=== PATIENT | female | born 1960 | race Two or more races ===

== ENCOUNTER → 2017-08-07 | Outpatient (CLI) | payer OTHER, MEDICAID ==
[~2017-08-07] MED LIST: ADAL40PE SQ; ALPR1TAB2 PO; ALPR1TAB6 PO; ASPI-655 PO; CYCL10TA2 PO; DEXL30CA2 PO; DULO60CA7 PO; FLUT16SP HHN; GABA100C7 PO; HYDR-3101 PO; HYDR-3105 PO; HYDR200T5 PO; IBUP-1131 PO; LEVO150T6 PO; LOVA10TA PO; MECL25TA3 PO; OMEP40CA6 PO; PRED5TAB17 PO; PREG100C PO; PROM25TA10 PO
--- NOTE | 2017-08-07 17:37 | DIREP ---
PROCEDURE:MAMMO BILATERAL SCREENING TECHNIQUE:MLO and CC digital images of each breast are provided. Computer Assisted Detection (CAD) was utilized. COMPARISON:[facility], , DIGITAL MAMMO SCREENING, 11/06/2013, 11:48 AM. INDICATIONS:SCREENING BREAST COMPOSITION:The breasts are almost entirely fatty. FINDINGS:There are no visible suspicious masses, clustered calcifications or architectural changes to suggest malignancy. CONCLUSION:There is no mammographic evidence of malignancy. There is no significant change as compared with the previous examination(s). RECOMMENDATIONS:Routine age-appropriate screening. OVERALL FINAL ASSESSMENT:BI-RADS 1: Negative Note:This facility participates in a mammography screening patient reminder system. Dictated by: Everardo Lepe M.D. on 08/07/2017 at 05:36 PM
== END | disposition home or self-care (01) ==
LOC: RAD 09:23
PROVIDERS: ATTEND Nurse Practitioner Family
DX: Z12.31 Encounter for screening mammogram for malignant neoplasm of breast (principal)
CPT/HCPCS: G0202; 77067

== ENCOUNTER 2018-04-05 14:39 | Emergency (ER) | payer OTHER, MEDICAID ==
[~2018-04-05] VITALS: Ht 157.5 cm; Wt 72.6 kg
[2018-04-05 14:48] VITALS: BP 145/81
--- NOTE | 2018-04-05 15:08 | NUR ---
CT PT OUT OF ROOM
[2018-04-05] MEDS ORDERED: MORPHINE SULFATE ONE (15:25)
--- NOTE | 2018-04-05 15:27 | NUR ---
CT PT BACK IN ROOM
--- NOTE | 2018-04-05 15:28 | DIREP ---
PROCEDURE:CHEST 1 VIEW COMPARISON:[facility], CR, XRAY CHEST SINGLE VW, 08/03/2016, 02:57 PM. INDICATIONS:possible cva FINDINGS: VASCULATURE:Unremarkable pulmonary vasculature. CARDIAC:No cardiac silhouette abnormality or cardiomegaly. ANGELICA/MEDIASTINUM:No visible mass or adenopathy. BONES:No acute fracture. OTHER:No additional findings. CONCLUSION: 1. No acute cardiopulmonary changes. Dictated by: Everardo Lepe M.D. on 04/05/2018 at 03:26 PM
[2018-04-05] MEDS ORDERED: MORPHINE SULFATE IV PRN (15:30)
--- NOTE | 2018-04-05 15:31 | DIREP ---
PROCEDURE:CT HEAD OR BRAIN W/O CONTRAST COMPARISON:None. INDICATIONS:sudden onset 20 min ago R arm/leg shaking R sided HASSAN;hx prior cva R side TECHNIQUE:CT images were created without intravenous contrast. FINDINGS: VENTRICLES: Negative. CEREBRUM: Negative. CEREBELLUM: Negative. BRAINSTEM: Negative. BASAL CISTERNS: Negative. SKULL: Negative. SINUSES: Negative. OTHER: None. CONCLUSION: 1. There is no CT evidence of intracranial mass, hemorrhage, or acute infarct. Dictated by: Everardo Lepe M.D. on 04/05/2018 at 03:26 PM
[2018-04-05 15:36] LABS: BASOPHIL % 0.6 % (0.0-0.2); EOSINOPHIL # 0.2 10^3/uL (0.0-0.2); EOSINOPHIL % 3.5 % (0.0-5.0); HEMOGLOBIN 10.4 g/dL (12.0-15.0); LYMPHOCYTES # 1.8 10^3/uL (1.0-4.8); MEAN CELL HGB 21.4 pg (26-34); MEAN CELL HGB CONCENTRATION 29.5 g/dL (33-37); MEAN CORP VOLUME 72.3 fL (78-100); MEAN PLATELET VOLUME 9.6 fL (7.8-11.0); MONOCYTES # 0.9 10^3/uL (0.3-0.8); MONOCYTES % 13.7 % (5.0-12.0); NEUTROPHIL # 3.8 10^3/uL (1.8-7.7); NEUTROPHILS % 55.9 % (41.0-85.0); PLATELET COUNT 338 10^3/uL (150-400); RED CELL DISTRIBUTION WIDTH 21.4 % (11.5-14.5); WHITE BLOOD CELL 6.8 10^3/uL (4.5-11.0)
[2018-04-05 16:06] LABS: ALANINE AMINOTRANSFERASE(ML) 88 U/L (12-78); ALKALINE PHOSPHATASE 557 U/L (50-136); ASPARTATE AMINO TRANSFERASE 101 U/L (0-35); CALCIUM 8.8 mg/dL (8.4-10.5); CARBON DIOXIDE 25.3 mmol/L (20.0-32); GLUCOSE 81 mg/dL (70-110)
--- NOTE | 2018-04-05 16:46 | PCM.EKG ---
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
--- NOTE | 2018-04-05 16:46 | ER.PDOC ---
General Chief Complaint: General Complaint Stated Complaint: HEADACHE Time seen by MD: 15:30 Source: patient Exam Limitations: no limitations History of Present Illness Initial Comments "I developed a headache on right side of my head about 20 minutes ago that was pretty severe. I developed shaking in my right arm and leg, which were the ones affected by my stroke I had in my 30s. I felt tingling in my lips and hands and feet. Everything has improved since it started but I was concerned and came to the ER" Timing/Duration: 1/2 hour Severity/Quality: moderate, achy Prior Headaches/Recent Trauma: no recent headache/trauma Associated Symptoms: tingling Prior symptoms/Treatment: Similar symptoms previous Allergies: Coded Allergies: No Known Allergies (Unverified , 12/23/15) Home Meds Reported Medications Fluticasone Propionate (FLUTICASONE PROPIONATE) 16 Gm [place].susp, 1 SPR HHN PRN PRN for resp, #16 08/03/16 Lovastatin (LOVASTATIN) 10 Mg Tablet, 1 TAB PO DAILY, #30 08/03/16 Pregabalin (LYRICA) 100 Mg Capsule, 1 CAP PO DAILY, #60 08/03/16 Dexlansoprazole (DEXILANT) 30 Mg Cap.dr.mp, 1 TAB PO DAILY, #30 08/03/16 Adalimumab (HUMIRA) 40 Mg/0.8 Ml Pen.ij.kit, 40 MG SQ every week 10/13/15 Hydrocodone Bit/Acetaminophen (NORCO 10-325) 1 Each Tablet, 1 TAB PO QID, #120 TAB 10/13/15 Gabapentin (GABAPENTIN) 100 Mg Capsule, 200 MG PO TID, CAPSULE 07/02/15 Omeprazole (OMEPRAZOLE) 40 Mg Capsule.dr, 40 MG PO DAILY 07/02/15 Hydroxychloroquine Sulfate (HYDROXYCHLOROQUINE SULFATE) 200 Mg Tablet, 200 MG PO BID, TABLET 07/02/15 Prednisone (PREDNISONE) 5 Mg Tab.ds.pk, 10 MG PO DAILY 07/02/15 Meclizine Hcl (MECLIZINE HCL) 25 Mg Tablet, 25 MG PO TID, TABLET 07/02/15 Alprazolam (ALPRAZOLAM) 1 Mg Tablet, 1 MG PO TID, TABLET 07/02/15 Levothyroxine Sodium (LEVOTHYROXINE SODIUM) 150 Mcg Tablet, 150 MCG PO DAILY, TABLET 07/02/15 Cyclobenzaprine Hcl (FLEXERIL) 10 Mg Tablet, 10 MG PO TID PRN for PAIN, TABLET 07/02/15 Past Medical History Medical History: CVA/TIA/stroke, coronary artery disease, heart attack, hypertension, thyroid disease Surgical History: , hysterectomy Family History Significant Family History: no pertinent family hx Social History Smoking: non-smoker Alcohol Use: none Drug Use: none Review of Systems Constitutional: denies no symptoms reported, denies see HPI, denies chills, denies diaphoresis, denies fever, denies malaise, denies weakness, denies other Eyes: denies no symptoms reported, denies see HPI, denies blindness, denies blurred vision, denies drainage, denies decreased acuity, denies foreign body sensation, denies inflammation, denies pain, denies photophobia, denies previous injury, denies shadows, denies tunnel vision, denies vision change, denies contact lenses, denies glasses, denies other Ears, Nose, Mouth, Throat: denies no symptoms reported, denies see HPI, denies ear pain, denies ear discharge, denies nose pain, denies nose discharge, denies epistaxis, denies mouth pain, denies mouth swelling, denies loose teeth, denies throat pain, denies throat swelling Respiratory: denies no symptoms reported, denies see HPI, denies cough, denies orthopnea, denies shortness of breath, denies stridor, denies wheezing, denies other Cardiovascular: denies no symptoms reported, denies see HPI, denies chest pain , denies edema, denies palpitations, denies syncope, denies other Gastrointestinal: denies no symptoms reported, denies see HPI, denies abdominal pain, denies constipation, denies diarrhea, denies nausea, denies vomiting, denies other Genitourinary: denies no symptoms reported, denies see HPI, denies discharge, denies dysuria, denies frequency, denies hematuria, denies pain, denies other Musculoskeletal: denies no symptoms reported, denies see HPI, denies back pain , denies gout, denies joint pain, denies joint swelling, denies muscle pain, denies muscle stiffness, denies neck pain, denies other Skin: denies no symptoms reported, denies see HPI, denies change in color, denies change in hair/nails, denies dryness, denies lesions, denies lumps, denies rash, denies other Psychiatric/Neurological: anxiety All Other Systems: Reviewed and Negative Physical Exam General Appearance: No Apparent Distress, WD/WN, Anxious Head/Eyes: eyes nml inspection, no facial swelling, no nystagmus, PERRL ENT: nml ENT inspection, pharynx nml Neck: nml inspection, Supple Cardiovascular: Normal Peripheral Pulses, Regular Rate, Rhythm, No Edema, No Gallop, No JVD, No Murmur Respiratory: chest non-tender, lungs clear, normal breath sounds, no respiratory distress, no accessory muscle use Gastrointestinal: Normal Bowel Sounds, No Organomegaly, No Pulsatile Mass, Non Tender, Soft Back: Normal Inspection, No CVA Tenderness, No Vertebral Tenderness Extremities: Normal Range of Motion, Non-Tender, Normal Inspection, No Pedal Edema, No Calf Tenderness, Normal Capillary Refill Psychiatric: Alert, Oriented x 3 Cranial Nerves: Normal Hearing, Normal Speech, PERRL Coordination/Gait: Normal Finger to Nose, Normal Gait Motor/Sensory: No Motor Deficit, No Sensory Deficit, No Pronator Drift, Other ( Normal Full strength and ROM x 4 extremities) Skin: Warm/Dry, Normal Color Lymphatic: No Adenopathy Results/Orders Results/Orders Laboratory Tests Test 04/05/18 15:30 04/05/18 16:55 White Blood Count 6.8 10^3/uL (4.5-11.0) Red Blood Count 4.87 10^6/uL (4.00-5.20) Hemoglobin 10.4 g/dL (12.0-15.0) Hematocrit 35.2 % (36.0-46.0) Mean Corpuscular Volume 72.3 fL (78-100) Mean Corpuscular Hemoglobin 21.4 pg (26-34) Mean Corpuscular Hemoglobin Concent 29.5 g/dL (33-37) Red Cell Distribution Width 21.4 % (11.5-14.5) Platelet Count 338 10^3/uL (150-400) Mean Platelet Volume 9.6 fL (7.8-11.0) Neutrophils (%) (Auto) 55.9 % (41.0-85.0) Lymphocytes (%) (Auto) 26.0 % (24.0-44.0) Monocytes (%) (Auto) 13.7 % (5.0-12.0) Neutrophils # (Auto) 3.8 10^3/uL (1.8-7.7) Lymphocytes # (Auto) 1.8 10^3/uL (1.0-4.8) Monocytes # (Auto) 0.9 10^3/uL (0.3-0.8) Absolute Immature Granulocyte (auto 0.02 10^3 u/L (0-2) Eosinophils % 3.5 % (0.0-5.0) Basophils % 0.6 % (0.0-0.2) Basophils # 0.0 10^3/uL (0.0-0.1) Hypochromasia 2+ (NEGATIVE) Poikilocytosis 2+ (NEGATIVE) Anisocytosis 3+ (NEGATIVE) Microcytosis 2+ (NEGATIVE) Macrocytosis 1+ (NEGATIVE) Stomatocytes 1+ (NEGATIVE) Elliptocytes 1+ (NEGATIVE) Eosinophil Count 0.2 10^3/uL (0.0-0.2) Sodium Level 140 mmol/L (132-145) Potassium Level 3.4 mmol/L (3.6-5.2) Chloride Level 105.0 mmol/L (96-109) Carbon Dioxide Level 25.3 mmol/L (20.0-32) Anion Gap 13.1 Blood Urea Nitrogen 11 mg/dL (7-18) Creatinine 0.88 mg/dL (0.59-1.40) Estimated GFR () 80.7 (>/=60) BUN/Creatinine Ratio 12.0 Glucose Level 81 mg/dL (70-110) Calcium Level 8.8 mg/dL (8.4-10.5) Total Bilirubin 1.0 mg/dL (0.2-1.0) Aspartate Amino Transf (AST/SGOT) 101 U/L (0-35) Alanine Aminotransferase (ALT/SGPT) 88 U/L (12-78) Alkaline Phosphatase 557 U/L (50-136) Troponin I < 0.02 ng/mL (0.00-0.05) Total Protein 7.3 g/dL (6.4-8.2) Albumin 3.0 g/dL (3.4-5.0) Globulin 4.3 Percent Immature Gran (Cell Imm) 0.30 % (0.00-0.50) Urine Collection Type CCMS Urine Color YELLOW (YELLOW) Urine Appearance CLEAR (CLEAR) Urine Bilirubin NEGATIVE MG/DL (NEGATIVE) Urine Ketones NEGATIVE (NEGATIVE) Urine Specific [place] 1.005 (1.005-1.035) Urine pH 6 (5.0-6.0) Urine Protein NEGATIVE (NEGATIVE) Urine Urobilinogen NORMAL (NEGATIVE) Urine Nitrate NEGATIVE (NEGATIVE) Urine Leukocyte Esterase NEGATIVE (NEGATIVE) Urine Blood NEGATIVE (NEGATIVE) Urine Glucose NORMAL (NEGATIVE) Administered Medications Medications (Trade) Dose Ordered Sig/Freda Route PRN Reason Start Time Stop Time Status Last Admin Dose Admin Morphine Sulfate (Morphine Sulfate) 2 mg OT PRN IV PAIN 04/05/18 15:30 05/05/18 15:29 04/05/18 15:33 EKG/XRAY/CT/US EKG: NSR, WI, QRS, no ST T wave changes Departure Time of Disposition: 18:25 Disposition: 01 HOME, SELF-CARE Impression: Primary Impression: Anxiety Additional Impression: Hyperventilation Condition: Stable Patient Instructions: Anxiety and Panic Attacks Referrals: DIANN ARRIETA SHREDDING FLOOR EQUIPMENT OPERATOR (PCP) PRIMARY CARE PROVIDER Comments If this happens again immediately take one of your xanax. If you don't get better in 30 minutes then come to the ER. Duration or Time Spent with Pa: 40 ELAN KEENAN MD Apr 05, 2018 16:46
[2018-04-05 17:00] LABS: ANISOCYTOSIS 3+ (NEGATIVE); ELLIPTOCYTES 1+ (NEGATIVE); MICROCYTOSIS 2+ (NEGATIVE)
[2018-04-05 17:04] LABS: BILIRUBIN,URINE NEGATIVE (NEGATIVE); UROBILINOGEN,URINE NORMAL (NEGATIVE)
[2018-04-05 17:06] LABS: APPEARANCE,URINE CLEAR (CLEAR); UA COLOR YELLOW (YELLOW)
[2018-04-05 18:47] VITALS: BP 145/81
== END 2018-04-05 18:41 | disposition home or self-care (01) ==
LOC: EDBD 14:39 → ER 14:39
DX: F41.9 Anxiety disorder, unspecified (principal); R06.4 Hyperventilation; E07.9 Disorder of thyroid, unspecified; I10 Essential (primary) hypertension; I25.10 Atherosclerotic heart disease of native coronary artery without angina pectoris; I25.2 Old myocardial infarction; Z86.73 Personal history of transient ischemic attack (TIA), and cerebral infarction without residual deficits; Z90.710 Acquired absence of both cervix and uterus; Z79.899 Other long term (current) drug therapy
CPT/HCPCS: 36415; 70450; 71045; 80053; 81002; 84484; 85025; 93005; 96374; 99285; J2270

== ENCOUNTER → 2018-05-02 | Outpatient (CLI) | payer OTHER, MEDICAID ==
[2018-05-02 15:17] LABS: HEMOGLOBIN 12.5 g/dL (12.0-15.0); MEAN CELL HGB 21.9 pg (26-34); MEAN CELL HGB CONCENTRATION 30.6 g/dL (33-37); MEAN CORP VOLUME 71.8 fL (78-100); RED CELL DISTRIBUTION WIDTH 21.4 % (11.5-14.5); WHITE BLOOD CELL 7.9 10^3/uL (4.5-11.0)
[2018-05-03 06:20] LABS: ALKALINE PHOSPHATASE 417 IU/L (39-117)
[2018-05-03 09:25] LABS: HEP A AB, IgM Negative (Negative)
[2018-05-06 17:15] LABS: BONE FRACTION: 41 % (14-68)
== END | disposition home or self-care (01) ==
LOC: LAB 14:52
PROVIDERS: ATTEND Nurse Practitioner Family
DX: D64.9 Anemia, unspecified (principal); R74.8 Abnormal levels of other serum enzymes; E11.9 Type 2 diabetes mellitus without complications; I10 Essential (primary) hypertension; E78.5 Hyperlipidemia, unspecified; E03.9 Hypothyroidism, unspecified; J44.9 Chronic obstructive pulmonary disease, unspecified; Z79.899 Other long term (current) drug therapy
CPT/HCPCS: 36415; 80061; 80074; 82607; 82746; 82977; 83516; 83550; 84080; 85027; 86376

== ENCOUNTER 2018-06-13 01:41 | Day surgery (SDC) | payer OTHER, MEDICAID ==
[2018-06-12 14:54] VITALS: BP 122/81
[2018-06-12 17:43] LABS: BASOPHIL # 0.1 10^3/uL (0.0-0.1); BASOPHIL % 1.5 % (0.0-0.2); EOSINOPHIL # 0.4 10^3/uL (0.0-0.2); EOSINOPHIL % 6.8 % (0.0-5.0); HEMOGLOBIN 12.6 g/dL (12.0-15.0); LYMPHOCYTES % 48.9 % (24.0-44.0); MEAN CELL HGB 25.4 pg (26-34); MEAN CELL HGB CONCENTRATION 31.4 g/dL (33-37); MEAN CORP VOLUME 80.7 fL (78-100); MONOCYTES # 0.7 10^3/uL (0.3-0.8); MONOCYTES % 11.1 % (5.0-12.0); NEUTROPHIL # 1.9 10^3/uL (1.8-7.7); NEUTROPHILS % 31.4 % (41.0-85.0); RED CELL DISTRIBUTION WIDTH 21.5 % (11.5-14.5)
[2018-06-12 17:53] LABS: CALCIUM 9.3 mg/dL (8.4-10.5)
[~2018-06-13] VITALS: Ht 160 cm; Wt 70.8 kg
[2018-06-13] VITALS (15 sets, daily range): BP systolic 105–130; BP diastolic 64–83
[~2018-06-13 01:41] MED LIST changes: +CALC-76 PO; +CHOL500050 PO; +[UNRECOGNIZED DRUG - CODE] SQ
[2018-06-13] MEDS ORDERED: NS 1000ML 1,000 ML ONE (05:41)
[2018-06-13] MEDS ORDERED: VERSED ONE (06:21)
[2018-06-13] MEDS ORDERED: HEPARIN ONE (06:21)
[2018-06-13] MEDS ORDERED: SUBLIMAZE ONE (06:21)
[2018-06-13] MEDS ORDERED: XYLOCAINE ONE (06:22)
[2018-06-13] MEDS ORDERED: NS 1000ML 1,000 ML IV SCH (09:00)
[2018-06-13] MEDS ORDERED: LISI-410 PO (09:25)
[2018-06-13] MEDS ORDERED: FERR325T15 PO (09:27)
[2018-06-13] MEDS ORDERED: DULO60CA7 PO (09:27)
[2018-06-13] MEDS ORDERED: LORA10TA3 PO (09:29)
[2018-06-13] MEDS ORDERED: NITROGLYCERIN 25MG/D5W 250ML 250 ML IV ONE (10:51)
--- NOTE | 2018-06-13 15:08 | CCRH ---
DATE OF SERVICE: 06/13/2018 PROCEDURE: 1. Left heart catheterization. 2. Selective coronary angiography. 3. Left ventricular angiography. CLINICAL INDICATION: The patient had a previous cardiac catheterization 5 years ago at a different institution. She came to the office complaining of episodes of substernal chest pain associated with diaphoresis. I am recommending that we do a repeat catheterization. DESCRIPTION OF PROCEDURE: After informed consent was obtained, the patient was brought to the cardiac catheterization lab in the fasting state and was prepped and draped in the usual sterile fashion. A 6-Australian sheath was placed in the right radial artery using Seldinger technique. A 5-Australian [place] catheter was then used for selective angiography of the left and right coronary arteries. Over a wire, the [place] catheter was exchanged for a 6-Australian angle pigtail catheter. Left ventricular angiography was performed in the COMER projection. Over a wire, the pigtail catheter was removed. The 6-Australian sheath was removed in the cardiac clinical laboratory aide and a TR band placed for hemostasis. FINDINGS: CORONARIES: Left main coronary artery is normal. It gives rise to a circumflex and an anterior descending. The circumflex is the nondominant vessel. The left coronary arteries are free of any occlusive disease. The right coronary artery is a dominant vessel. There is a 30% stenosis at its origin, but no flow limiting disease. The left ventricle is of normal size and normal contractility. The ejection fraction is estimated at 60% and there were no flow-limiting lesions. CONCLUSION: 1. Normal coronary arteries. 2. Mild stenosis at the origin of the right coronary artery with MICAELA grade 3 flow. 3. Normal left ventricle with normal ejection fraction of 60%. MARIANNA CORREIA MD DR: DOTTIE/kaur JOB# [id number]
== END 2018-06-13 15:52 | disposition home or self-care (01) | DRG 303 ==
LOC: CCL 01:41
DX: I25.10 Atherosclerotic heart disease of native coronary artery without angina pectoris (principal); F32.9 Major depressive disorder, single episode, unspecified; E03.9 Hypothyroidism, unspecified; M19.90 Unspecified osteoarthritis, unspecified site; E11.9 Type 2 diabetes mellitus without complications; I20.9 Angina pectoris, unspecified; F41.1 Generalized anxiety disorder; J44.9 Chronic obstructive pulmonary disease, unspecified; E66.3 Overweight; M06.9 Rheumatoid arthritis, unspecified; Z96.659 Presence of unspecified artificial knee joint; Z90.710 Acquired absence of both cervix and uterus; Z98.890 Other specified postprocedural states; Z82.49 Family history of ischemic heart disease and other diseases of the circulatory system; Z83.3 Family history of diabetes mellitus; F15.90 Other stimulant use, unspecified, uncomplicated; Z79.899 Other long term (current) drug therapy; Z68.27 Body mass index [BMI] 27.0-27.9, adult; Z96.652 Presence of left artificial knee joint; Z90.49 Acquired absence of other specified parts of digestive tract; Z87.891 Personal history of nicotine dependence
CPT/HCPCS: 36415; 80048; 85025; 93458; 99152; 99153; C1769; C1887; J1644 ×2; J2250; J3010; J3490 ×2; J7030; Q9967; C1893

== ENCOUNTER → 2018-07-18 | Outpatient (CLI) | payer OTHER, MEDICAID ==
[~2018-07-18] MED LIST changes: +FERR325T15 PO; +LISI-410 PO; +LORA10TA3 PO
--- NOTE | 2018-07-18 15:10 | DIREP ---
PROCEDURE:CT MAXILLOFACIAL W/O CONTRAST COMPARISON:None. INDICATIONS:UNSPECIFIED LESIONS OF ORAL MUCOSA TECHNIQUE:Axial CT images were created without intravenous contrast. Sagittal and coronal reformatted images are provided. FINDINGS: ORBITS:The globe is intact. No extraocular muscle entrapment is identified. No orbital wall fracture is identified. FACIAL BONES:No fracture. NASAL BONES :No fracture MANDIBLE:No fracture. Dental caries right mandibular molars and right maxillary 2nd premolar. SINUSES:No air fluid level is seen. No mucosal thickening. Surrounding bone structures are intact. SOFT TISSUES:No significant hematoma, or soft tissue swelling. CONCLUSION: 1. Dental caries. 2. No other abnormalities. Dictated by: Aquiles Henderson M.D. on 07/18/2018 at 03:03 PM
== END | disposition home or self-care (01) ==
LOC: CT 13:09
PROVIDERS: ATTEND Nurse Practitioner Family
DX: K02.9 Dental caries, unspecified (principal); I10 Essential (primary) hypertension; E11.9 Type 2 diabetes mellitus without complications; J44.9 Chronic obstructive pulmonary disease, unspecified; E78.00 Pure hypercholesterolemia, unspecified; Z87.891 Personal history of nicotine dependence
CPT/HCPCS: 70486

== ENCOUNTER 2018-07-23 01:19 | Day surgery (SDC) | payer OTHER, MEDICAID ==
[2018-07-19 09:39] VITALS: BP 131/84
[2018-07-19 10:32] LABS: BASOPHIL # 0.1 10^3/uL (0.0-0.1); EOSINOPHIL # 0.6 10^3/uL (0.0-0.2); EOSINOPHIL % 10.8 % (0.0-5.0); LYMPHOCYTES # 2.6 10^3/uL (1.0-4.8); MEAN CELL HGB 26.6 pg (26-34); MEAN CELL HGB CONCENTRATION 31.9 g/dL (33-37); MEAN CORP VOLUME 83.2 fL (78-100); MEAN PLATELET VOLUME 11.3 fL (7.8-11.0); MONOCYTES # 0.5 10^3/uL (0.3-0.8); MONOCYTES % 8.7 % (5.0-12.0); NEUTROPHIL # 1.5 10^3/uL (1.8-7.7); NEUTROPHILS % 29.3 % (41.0-85.0); RED CELL DISTRIBUTION WIDTH 19.7 % (11.5-14.5); WHITE BLOOD CELL 5.2 10^3/uL (4.5-11.0)
[2018-07-19 10:45] LABS: CALCIUM 9.3 mg/dL (8.4-10.5); CARBON DIOXIDE 26.5 mmol/L (20.0-32)
[~2018-07-23] VITALS: Ht 160 cm; Wt 75.7 kg
[~2018-07-23 01:19] MED LIST changes: +MOVIPREP POWDER PACKET PO STA
[2018-07-23] MEDS ORDERED: NS 1000ML 1,000 ML ONE ×2 (05:00→07:19)
[2018-07-23] MEDS ORDERED: WATER ONE (06:58)
[2018-07-23 06:59] VITALS: BP 136/99
[2018-07-23] MEDS ORDERED: GLUCAGEN ONE (06:59)
[2018-07-23] MEDS ORDERED: LACTATED RINGERS 1,000 ML IV SCH (07:00)
[2018-07-23] MEDS ORDERED: ZOFRAN ONE (07:00)
[2018-07-23] MEDS ORDERED: SUBLIMAZE ONE (07:00)
[2018-07-23] MEDS ORDERED: LIDOCAINE 2% VIAL ONE (07:01)
[2018-07-23] MEDS ORDERED: DIPRIVAN IV ONE (07:01)
[2018-07-23] MEDS ORDERED: NS 100ML 100 ML IV ONE (07:01)
[2018-07-23 08:10] VITALS: BP 103/72
[2018-07-23 08:25] VITALS: BP 110/72
[2018-07-23 08:40] VITALS: BP 122/75
[2018-07-23 08:53] VITALS: BP 112/64
--- NOTE | 2018-07-23 10:30 | OPH ---
DATE OF SURGERY: 07/23/2018 PREOPERATIVE DIAGNOSIS: Need for screening. POSTOPERATIVE DIAGNOSIS: Check path on colon polyp, ascending colon. SURGEON: Edgar Turner DO. BOBBIN CLEANER HAND: OR staff. ANESTHESIA: Total intravenous anesthesia by Mindy Lopez CRNA. PROCEDURE PERFORMED: Long flexible colonoscopy to the cecum with loop electrocautery polypectomy in the ascending colon. SPECIMENS: Ascending colon polyp to path. ESTIMATED BLOOD LOSS: 3 mL. COUNTS: At the completion of the case, counts were correct per OR staff. DESCRIPTION OF PROCEDURE: The patient is a very pleasant 58-year-old female known from previous evaluation. Prior to procedure, informed consent was obtained. At time of procedure, she was taken to the operative suite and placed in supine position. After timeout, placed in left lateral recumbent position. After adequate sedation, a rectal exam was performed. There were no masses. Next, the colonoscope was advanced transanally with pneumoinsufflation proximally to the level of the cecum. The quality of prep was good. Once the cecum was visualized, camera was slowly withdrawn to facilitate visualization of the ascending colon. In the mid distal ascending colon, a polyp was identified. Initial biopsies were taken with cold forceps. However, due to location, it was snared with the loop and removed with electrocautery. The specimen was then retained with suction and caught and trapped. The base was inspected and noted to have good hemostasis. Camera was withdrawn to the remainder of the ascending colon, hepatic flexure, transverse colon, splenic flexure, descending colon, sigmoid and rectum; there was no further overt mass or polyps, or AVMs. At the level of 5 cm, camera was retroflexed and reinserted. Anal verge was visualized, within normal limits. Camera was reduced. Colon was decompressed. Colonoscope was removed. The patient tolerated this procedure well. There were no acute complications noted. Edgar Turner DO DR: DELGADO/kaur JOB# [id number] CC: Geoff Salvador NP MTDDariel
== END 2018-07-23 08:53 | disposition home or self-care (01) ==
LOC: SDC 01:19
PROVIDERS: ATTEND Surgery
DX: Z12.11 Encounter for screening for malignant neoplasm of colon (principal); D12.2 Benign neoplasm of ascending colon; F41.9 Anxiety disorder, unspecified; E03.9 Hypothyroidism, unspecified; E11.9 Type 2 diabetes mellitus without complications; K21.9 Gastro-esophageal reflux disease without esophagitis; E78.5 Hyperlipidemia, unspecified; M06.9 Rheumatoid arthritis, unspecified; F32.9 Major depressive disorder, single episode, unspecified; I25.10 Atherosclerotic heart disease of native coronary artery without angina pectoris; F15.90 Other stimulant use, unspecified, uncomplicated; Z72.0 Tobacco use; Z98.890 Other specified postprocedural states; Z86.73 Personal history of transient ischemic attack (TIA), and cerebral infarction without residual deficits; Z96.659 Presence of unspecified artificial knee joint; Z90.710 Acquired absence of both cervix and uterus; Z79.899 Other long term (current) drug therapy; Z90.49 Acquired absence of other specified parts of digestive tract; Z98.51 Tubal ligation status; Z80.3 Family history of malignant neoplasm of breast; Z80.8 Family history of malignant neoplasm of other organs or systems; Z82.5 Family history of asthma and other chronic lower respiratory diseases; Z83.3 Family history of diabetes mellitus; Z82.49 Family history of ischemic heart disease and other diseases of the circulatory system
CPT/HCPCS: 36415; 45385; 80053; 85025; 85610; 85730; 88305; J1610; J2001; J2405; J3010; J3490; J7030; J7050

== ENCOUNTER → 2018-12-06 | Outpatient (CLI) | payer OTHER, MEDICAID ==
[~2018-12-06] MED LIST changes: -MOVIPREP POWDER PACKET PO STA
--- NOTE | 2018-12-06 10:29 | DIREP ---
PROCEDURE:CT UPPER EXTREMITY-LT W/CONTRAST COMPARISON:None. INDICATIONS:ACUTE EMBOLISM AND THROMBOSIS OF LT SUBCLAVIAN VEIN TECHNIQUE:After obtaining the patient's consent, multi-planar CT images of the left upper extremity were created with non-ionic intravenous contrast. FINDINGS: BONES:Normal. JOINTS:Normal SOFT TISSUES:Post surgical changes are seen consistent with thyroidectomy. OTHER:The deep veins including the left axillary and left subclavian veins of the left upper extremity are patent. No thrombus or filling defect is demonstrated. CONCLUSION:There are no findings of deep venous thrombosis of the left upper extremity. Further evaluation can be performed with Doppler venous ultrasound. Dictated by: Ron Gonzalez M.D. on 12/06/2018 at 10:19 AM
== END | disposition home or self-care (01) ==
LOC: CT 09:18
PROVIDERS: ATTEND Nurse Practitioner Family
DX: I82.B11 Acute embolism and thrombosis of right subclavian vein (principal); E89.0 Postprocedural hypothyroidism
CPT/HCPCS: 73201; Q9965

== ENCOUNTER → 2019-01-29 | Outpatient (CLI) | payer MEDICARE, OTHER ==
[2019-01-29 14:07] LABS: HEMOGLOBIN 14.6 g/dL (12.0-15.0); MEAN CELL HGB 29.7 pg (26-34); MEAN CELL HGB CONCENTRATION 32.7 g/dL (33-37); MEAN CORP VOLUME 90.7 fL (78-100); RED CELL DISTRIBUTION WIDTH 13.8 % (11.5-14.5); WHITE BLOOD CELL 4.8 10^3/uL (4.5-11.0)
== END | disposition home or self-care (01) ==
LOC: LAB 13:56
PROVIDERS: ATTEND Orthopaedic Surgery
DX: M04.8 Other autoinflammatory syndromes (principal)
CPT/HCPCS: 36415; 85027; 85651; 86140

== ENCOUNTER → 2019-02-03 | Outpatient (CLI) | payer MEDICARE, MEDICAID ==
--- NOTE | 2019-02-03 14:27 | DIREP ---
PROCEDURE:MRI JOINT LOWER EXTREMITY-RT W/O COMPARISON:None. INDICATIONS:LOCKING RIGHT KNEE, MENISCUS TEAR RT KNEE TECHNIQUE:A complete multi-planar MRI was performed. FINDINGS: PATELLOFEMORAL:Normal patellofemoral cartilage. The extensor mechanism is intact. MEDIAL COMPARTMENT MEDIAL MENISCUS:Horizontal tear of the posterior horn body junction of the medial meniscus. HYALINE CARTILAGE:Moderate chondromalacia. No full-thickness defect BONES:Normal. No marrow pathology, fracture, or significant arthropathy. MCL AND MEDIAL CAPSULE:Normal medial collateral ligament and medial capsule. LATERAL COMPARTMENT LATERAL MENISCUS:Horizontal tear of the anterior horn body junction of the lateral meniscus. HYALINE CARTILAGE:Normal. No visible defect. BONES:Normal. No marrow pathology, fracture, or significant arthropathy. LCL/POSTEROLAT. COMPLEX:Normal lateral collateral ligament, fascicles, lateral capsule and ligaments. ACL:Normal appearing ligament. PCL:Normal appearing ligament. MENISCOFEMORAL:Normal meniscofemoral ligaments. EFFUSION:Small joint effusion. OTHER:Negative. CONCLUSION: 1. Horizontal tears of the posterior horn body junction of the medial meniscus and anterior horn body junction of the lateral meniscus 2. Small joint effusion. 3. Mild medial compartment chondromalacia. Dictated by: Basim Urena DO on 02/03/2019 at 02:21 PM
== END | disposition home or self-care (01) ==
LOC: RAD 12:16
PROVIDERS: ATTEND Orthopaedic Surgery
DX: S83.241A Other tear of medial meniscus, current injury, right knee, initial encounter (principal); M94.261 Chondromalacia, right knee; X58.XXXA Exposure to other specified factors, initial encounter; Y93.89 Activity, other specified; Y92.89 Other specified places as the place of occurrence of the external cause; Y99.8 Other external cause status
CPT/HCPCS: 73721

== ENCOUNTER → 2019-04-09 | Outpatient (CLI) | payer MEDICARE, MEDICAID | END | disposition home or self-care (01) | LOC: LAB 15:14 | PROVIDERS: ATTEND Internal Medicine Allergy & Immunology | DX: E80.7 Disorder of bilirubin metabolism, unspecified (principal); I10 Essential (primary) hypertension; Z87.891 Personal history of nicotine dependence | CPT/HCPCS: 36415; 82248 ==

== ENCOUNTER → 2019-06-05 | Outpatient (CLI) | payer MEDICARE, MEDICAID ==
[~2019-06-05] MED LIST changes: +LEXISCAN IV ONE
--- NOTE | 2019-06-19 22:33 | STRESS ---
DATE OF SERVICE: LEXISCAN MYOCARDIAL PERFUSION SCAN A 59-year-old female, 159 pounds, 62 inches tall, history of CAD, post CVA, post MD 30 years ago, history of hypertension, no diabetes and questionable history of dyslipidemia. PRIMARY PHYSICIAN: Dr. Cosby. PHYSICAL ACTIVITIES: Inactive, unable to walk. A 12-lead EKG, regular sinus rhythm with nonspecific ST-T wave changes. Resting heart rate is 56. The patient was given Lexiscan 0.4 mg IV followed by 32.1 mCi of Cardiolite and resting images were obtained prior to that with 9.94 mCi of Cardiolite. Denied any history of any chest pain, nonspecific ST-T wave changes. Normal myocardial perfusion scan with good global perfusion with no provoked ischemic manifestations. TID is 1.1. Normal LV cavity size and contractility, ejection fraction of 70%. No provoked ischemia. Optimized medical therapy advised. Laxmichand MD Teto DR: ERIKA/kaur JOB# [id number] CC: Hi Cosby MD
== END | disposition home or self-care (01) ==
LOC: RAD 08:39
PROVIDERS: ATTEND Internal Medicine Cardiovascular Disease
DX: I25.10 Atherosclerotic heart disease of native coronary artery without angina pectoris (principal)
CPT/HCPCS: 78452; 93017; A9500; J2785

== ENCOUNTER → 2019-06-06 | Outpatient (CLI) | payer MEDICARE, MEDICAID ==
[~2019-06-06] MED LIST changes: -LEXISCAN IV ONE
--- NOTE | 2019-06-06 16:08 | DIREP ---
PROCEDURE:US PELVIC FOLLOWED BY TRANSVAGINAL COMPARISON:[facility], CT, CT-ABDOMEN /PELVIS W/O CONTRAST, 01/03/2012, 09:39 AM. INDICATIONS:PELVIC AND PERINEAL PAIN TECHNIQUE:Pelvic ultrasound using transabdominal technique. Endovaginal images were also obtained for better assessment of the ovaries and adnexa. FINDINGS: UTERUS:Surgically absent. RIGHT OVARY:Normal appearance. 2.9 x 1.4 x 1.2 cm. LEFT OVARY:Normal appearance. 2.3 x 1.2 x 1.2 cm. CUL-DE-SAC:Normal. OTHER:Negative. CONCLUSION: 1. Unremarkable pelvic ultrasound post hysterectomy. Dictated by: ELMO Physician on 06/06/2019 at 02:56 PM ac
== END | disposition home or self-care (01) ==
LOC: RAD 13:37
PROVIDERS: ATTEND Obstetrics & Gynecology
DX: R10.2 Pelvic and perineal pain (principal)
CPT/HCPCS: 76830; 76856

== ENCOUNTER → 2019-08-06 | Outpatient (CLI) | payer MEDICARE, MEDICAID ==
[~2019-08-06] MED LIST changes: +OMEP40CA41 PO; -OMEP40CA6 PO
--- NOTE | 2019-08-06 10:52 | DIREP ---
PROCEDURE:XRAY SHOULDER MIN 2 VWS-RT COMPARISON:[facility], CR, XRAY SHOULDER MIN 2 VWS-RT, 11/27/2017, 04:41 PM. [facility], CT, CT UPPER EXTREMITY-LT W/CONTRAST, 12/06/2018, 09:41 AM. INDICATIONS:M25.511 PAIN IN RIGHT SHOULDER FINDINGS: BONES:Normal. JOINTS:Normal glenohumeral and acromioclavicular joints. No evidence for dislocation. SOFT TISSUES:Normal. OTHER:Normal. CONCLUSION: 1. Normal radiographs of the right shoulder. No significant change is noted since 11/27/2017. Dictated by: Rosales Rodriguez M.D. on 08/06/2019 at 10:49 AM
== END | disposition home or self-care (01) ==
LOC: RAD 09:36
PROVIDERS: ATTEND Nurse Practitioner Family
DX: M25.511 Pain in right shoulder (principal)
CPT/HCPCS: 73030-RT

== ENCOUNTER → 2019-08-14 | Outpatient (CLI) | payer MEDICARE, MEDICAID ==
--- NOTE | 2019-08-15 07:32 | DIREP ---
PROCEDURE:MR SHOULDER WITHOUT CONTRAST [Right] TECHNIQUE:Axial proton density fat sat; sagittal oblique T1 and T2 fat sat; coronal oblique proton density fat sat, T2 and inversion recovery sequences were obtained. COMPARISON:None. INDICATIONS:M25.511 PAIN IN RIGHT SHOULDER, M75.11 INCOMPLETE ROTATOR CUFF TEAR FINDINGS: Rotator cuff: Micro metallic artifact is present in the greater tuberosity and in the subcutaneous tissues over the right shoulder compatible with prior surgery. Partial tears are present along the articular surface and bursal surface of the distal supraspinatus tendon series 501, image 6. There is tendinosis in the remaining portion of the tendon with intermediate signal intensity. There is questionable full-thickness communication sagittal series 701, image 24 and coronal series 501, image 5. Intermediate signal intensity is present in the infraspinatus tendon series 701, image 24 consistent with tendinosis. The teres minor tendon is intact. Partial intra substance tear is present in the sub scapularis tendon series 301, image 14. Fluid is present in the subacromial subdeltoid bursa. This may be secondary to full-thickness communication or represent bursitis. Coracoacromial arch: The acromion is type 2. Enthesophyte formation is present in the inferior acromion at the insertion site of the coracoacromial ligament series 801, image 23. Small amount of fluid is present in the acromioclavicular joint space. The coracoacromial and coracoclavicular ligaments are intact. The coracoid is normal in configuration. Bones and joints space: There is no fracture, marrow edema, destructive intraosseous lesion, Hill-Sachs deformity or evidence of avascular necrosis. The amount of joint fluid is within physiologic range. There are no loose bodies. Labrum and capsule: Slap 2 tear is present in the superior labrum series 501, image 10. There is no para-labral cyst. Biceps tendon: There is either a double long head of the biceps tendon in the intertubercular groove or a longitudinal split. The long head of the biceps tendon is subluxed medially into the torn intra substance tear of the sub scapularis tendon series 301, image 14. Miscellaneous: There is no muscle edema or atrophy. There is no soft tissue mass lesion. The neurovascular structures are normal. CONCLUSION: 1. Micro metallic artifact is present consistent with prior surgery. 2. Partial intrasubstance tear of the sub scapularis tendon allowing medial subluxation long head of the biceps tendon. 3. Partial tears along the articular and bursal surfaces of the supraspinatus tendon. 4. Tendinosis infraspinatus tendon. 5. Slap 2 tear. 6. Either longitudinal split of the long head of the biceps or a double long head of the biceps tendon. Dictated by: Aquiles Henderson M.D. on 08/15/2019 at 07:16 AM
== END | disposition home or self-care (01) ==
LOC: MRI 13:49
PROVIDERS: ATTEND Nurse Practitioner Family
DX: M75.111 Incomplete rotator cuff tear or rupture of right shoulder, not specified as traumatic (principal); M75.91 Shoulder lesion, unspecified, right shoulder
CPT/HCPCS: 73221-RT

== ENCOUNTER → 2019-10-21 | Outpatient (CLI) | payer MEDICARE, MEDICAID ==
[2019-10-21 16:35] LABS: APPEARANCE,URINE CLEAR (CLEAR); BILIRUBIN,URINE NEGATIVE (NEGATIVE); UA COLOR YELLOW (YELLOW); UROBILINOGEN,URINE NORMAL (NEGATIVE)
== END | disposition home or self-care (01) ==
LOC: NPLAB 15:46
PROVIDERS: ATTEND Nurse Practitioner Family
DX: R35.0 Frequency of micturition (principal); R30.0 Dysuria; Z87.442 Personal history of urinary calculi
CPT/HCPCS: 81002; 87086

== ENCOUNTER → 2019-10-22 | Outpatient (CLI) | payer MEDICARE, MEDICAID ==
--- NOTE | 2019-10-22 16:54 | DIREP ---
PROCEDURE:US KIDNEYS-BILAT COMPARISON:None. INDICATIONS:R10.9 ABD PAIN, R35.0 URINARY FREQUENCY, Z87.442 PERSONAL HISTORY URINARY C, HTN TECHNIQUE:Ultrasound examination was performed of the kidneys and bladder. FINDINGS: RIGHT KIDNEY:No hydronephrosis. 9.2 x 4.8 x 5.2 cm. No solid suspicious mass. Renal cortical thickness 1.3 cm with normal echogenicity. LEFT KIDNEY:No hydronephrosis. 10.1 x 4.8 x 4.7 cm. No solid suspicious mass. Left renal cortical thickness 1.2 cm with normal echogenicity. BLADDER:Patient unable to void, 45 cc urine in the bladder. Bilateral ureteral jets are noted. OTHER:Negative. CONCLUSION: 1. Kidneys have a normal sonographic appearance. 2. Patient unable to void with 45 cc urine in the bladder. Dictated by: Kodi Tabares M.D. on 10/22/2019 at 03:50 PM Read in [place]
== END | disposition home or self-care (01) ==
LOC: RAD 14:31
PROVIDERS: ATTEND Nurse Practitioner Family
DX: R35.0 Frequency of micturition (principal); R10.9 Unspecified abdominal pain; I10 Essential (primary) hypertension; Z87.442 Personal history of urinary calculi
CPT/HCPCS: 76770

== ENCOUNTER → 2019-12-19 | Outpatient (CLI) | payer MEDICARE, OTHER ==
[~2019-12-19] MED LIST changes: +MECL-95 PO; -MECL25TA3 PO
[2019-12-21 19:12] LABS: MITOCHONDRIAL (M2) ANTIBODY 169.3 Units (0.0-20.0)
== END | disposition home or self-care (01) ==
LOC: LAB 14:53
PROVIDERS: ATTEND Nurse Practitioner Family
DX: R74.8 Abnormal levels of other serum enzymes (principal); E55.9 Vitamin D deficiency, unspecified
CPT/HCPCS: 36415; 82306; 82977

== ENCOUNTER → 2019-12-26 | Outpatient (CLI) | payer MEDICARE, MEDICAID ==
--- NOTE | 2019-12-26 10:11 | DIREP ---
PROCEDURE:US ABDOMEN LIMITED (SINGLE ORGAN - QUAD) COMPARISON:[facility], US, US KIDNEYS-BILAT, 10/22/2019, 02:58 PM. INDICATIONS:FATTY LIVER DISEASE TECHNIQUE:High resolution sonographic examination was performed of the abdomen. FINDINGS: PANCREAS:Visualized portions of the pancreas appear normal. The pancreatic tail is obscured by bowel gas shadowing. LIVER:Increased hepatic echotexture consistent with hepatic steatosis. There is decreased echotexture adjacent to the gallbladder fossa consistent with focal fatty sparing. No focal hepatic lesion is identified, liver subcostal in location. Posterior segments are difficult to visualize. Hepatopetal flow in the portal vein. GALLBLADDER:Normal appearing gallbladder without evidence for gallbladder wall thickening or pericholecystic fluid. BILIARY:There is no biliary ductal dilatation. RIGHT KIDNEY:Normal. No hydronephrosis. OTHER:Negative. No ascites is identified. CBD:0.6 cm GALLBLADDER WALL: 0.3 cm RIGHT KIDNEY: 9.6 x 4.1 x 4.8 cm. CONCLUSION:Echogenic liver, in keeping with given history of fatty liver disease. No gallstones, common bile duct normal. Dictated by: HPRA Physician on 12/26/2019 at 09:57 AM bs
== END | disposition home or self-care (01) ==
LOC: RAD 08:27 → EEVIPCON 08:30
PROVIDERS: ATTEND Internal Medicine Allergy & Immunology
DX: K76.0 Fatty (change of) liver, not elsewhere classified (principal)
CPT/HCPCS: 76705

== ENCOUNTER → 2020-02-02 | Outpatient (CLI) | payer MEDICARE, MEDICAID ==
--- NOTE | 2020-02-02 12:52 | DIREP ---
PROCEDURE:US DOPPLER CAROTID BILATERAL COMPARISON:None. INDICATIONS:DIZZINESS AND VERTIGO, HYPERLIPIDEMIA TECHNIQUE:Sonographic evaluation of carotid arteries was performed together with grayscale, color-flow, and spectral analysis. FINDINGS: PEAK FLOW VELOCITIES (cm/sec) RIGHT CCA: PROX:75.4 cm/s DIST:49.6 cm/s RIGHT BULB: 44.2 cm/s RIGHT ICA: PROX:53.7 cm/s MID:67.9 cm/s DIST:71.2 cm/s RIGHT ECA:102.7 cm/s RIGHT ICA/CCA:1.4 RIGHT VERTEBRAL:52.0 cm/s; Antegrade IMAGES:There is moderate plaque at the level of the bulb. LEFT CCA: PROX:58.1 cm/s DIST:49.1 cm/s LEFT BULB:Not obtained. LEFT ICA: PROX:73.2 cm/s MID:88.9 cm/s DIST:85.1 cm/s LEFT ECA:79.8 cm/s LEFT ICA/CCA:1.8 LEFT VERTEBRAL:49.5 cm/s; Antegrade IMAGES:There is mild plaque at the level of the bifurcation. CONCLUSION:No significant flow limiting stenosis Diameter Stenosis (%)ICA Peak Systolic Velocity (cm/s)ICA/CCA RatioNormal<125<2.0<50<125<[id number]>2-470 to near occlusion>230>4J Ultrasound Med 2005; 24:4288-3549 Dictated by: ELMO Physician on 02/02/2020 at 12:35 PM ac
== END | disposition home or self-care (01) ==
LOC: RAD 10:14
PROVIDERS: ATTEND Nurse Practitioner
DX: E78.2 Mixed hyperlipidemia (principal); E03.9 Hypothyroidism, unspecified; E55.9 Vitamin D deficiency, unspecified; R42 Dizziness and giddiness; I65.23 Occlusion and stenosis of bilateral carotid arteries
CPT/HCPCS: 36415; 80061; 82306; 84439; 84443; 93880

== ENCOUNTER → 2020-03-01 | Outpatient (CLI) | payer MEDICARE, MEDICAID ==
--- NOTE | 2020-03-01 17:14 | DIREP ---
PROCEDURE:XRAY FOOT MIN 3 VWS-RT COMPARISON:None. INDICATIONS:UNSPECIFIED INJURY OF RIGHT FOOT, INITIAL ENCOUNTER FINDINGS: BONES:AP, lateral and oblique images of the right foot are provided. Oblique minimally displaced fracture of the mid and proximal diaphysis of the proximal phalanx of the 3rd toe is noted. No callus or periosteal thickening. The other toes, the metatarsals, midfoot bones and hindfoot bones are intact. JOINTS:Normal. SOFT TISSUES:Normal. OTHER:No additional findings. CONCLUSION:Acute fracture of the 3rd toe. Dictated by: Manuel Appiah M.D. on 03/01/2020 at 05:12 PM
== END | disposition home or self-care (01) ==
LOC: RAD 16:39
PROVIDERS: ATTEND Internal Medicine
DX: S92.331A Displaced fracture of third metatarsal bone, right foot, initial encounter for closed fracture (principal); X58.XXXA Exposure to other specified factors, initial encounter; Y93.89 Activity, other specified; Y92.89 Other specified places as the place of occurrence of the external cause; Y99.8 Other external cause status
CPT/HCPCS: 73630-RT

== ENCOUNTER → 2020-03-22 | Outpatient (CLI) | payer MEDICARE, MEDICAID ==
[2020-03-22 09:19] LABS: MEAN CORP HGB 29.5 pg (26-34); RED CELL DISTRIBUTION WIDTH 13.1 % (11.5-14.5)
[2020-03-22 09:34] LABS: ALANINE AMINOTRANSFERASE(ML) 110 U/L (12-78); ALKALINE PHOSPHATASE 256 U/L (50-136); ASPARTATE AMINO TRANSFERASE 106 U/L (0-35); CALCIUM 9.3 mg/dL (8.4-10.5); CARBON DIOXIDE 28.6 mmol/L (20.0-32); GLUCOSE 92 mg/dL (70-110)
[2020-03-25 12:14] LABS: OPIATES Negative (Cutoff=200)
[2020-03-26 07:02] LABS: NORDIAZEPAM NEGATIVE; OXAZEPAM NEGATIVE
[2020-03-26 07:03] LABS: OH-ALPRAZOLAM POSITIVE; OH-ALPRAZOLAM GC.MS CONF 514
== END | disposition home or self-care (01) ==
LOC: LAB 08:56
PROVIDERS: ATTEND Nurse Practitioner Family
DX: E55.9 Vitamin D deficiency, unspecified (principal); Z79.891 Long term (current) use of opiate analgesic
CPT/HCPCS: 36415; 80053; 80307; 80346; 82306; 85027; 85651; 86140; G0480

== ENCOUNTER 2020-07-20 04:20 | Observation (INO) | payer MEDICARE, MEDICAID ==
[2020-07-20] VITALS (7 sets, daily range): BP systolic 117–136; BP diastolic 45–90
[~2020-07-20] VITALS: Ht 157.5 cm; Wt 73.6 kg
[~2020-07-20 04:20] MED LIST changes: -ASPI-655 PO; +ASPI-929 PO
[2020-07-20] MEDS ORDERED: ASPIRIN PO STA (04:29)
[2020-07-20] MEDS ORDERED: NITROSTAT SL PRN (04:30)
--- NOTE | 2020-07-20 04:41 | PCM.EKG ---
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
[2020-07-20 04:51] LABS: BASOPHIL % 0.2 % (0.0-0.2); EOSINOPHIL # 0.1 10^3/uL (0.0-0.2); EOSINOPHIL % 1.2 % (0.0-5.0); LYMPHOCYTES # 3.67 10^3/uL1 (1.0-4.8); LYMPHOCYTES % 61.5 % (24.0-44.0); MEAN CORP HGB 30.2 pg (26-34); MONOCYTES # 0.4 10^3/uL (0.3-0.8); MONOCYTES % 6.9 % (5.0-12.0); NEUTROPHIL # 1.8 10^3/uL (1.8-7.7); PLATELET COUNT 225 10^3/uL (150-400); RED CELL DISTRIBUTION WIDTH 13.7 % (11.5-14.5)
--- NOTE | 2020-07-20 04:53 | NUR ---
EM CARTER AT BEDSIDE FOR PORTABLE CHEST XRAY
--- NOTE | 2020-07-20 05:00 | DIREP ---
PROCEDURE:CHEST 1 VIEW COMPARISON:[facility], CR, XRAY CHEST SINGLE VW, 04/05/2018, 03:06 PM. [facility], CR, XRAY CHEST SINGLE VW, 08/03/2016, 02:57 PM. INDICATIONS:Chest pain FINDINGS: LUNGS/PLEURA:No significant pulmonary parenchymal abnormalities. No effusions. VASCULATURE:Normal. Unremarkable pulmonary vasculature. CARDIAC:Normal. No cardiac silhouette abnormality or cardiomegaly. MEDIASTINUM:Normal. No visible mass or adenopathy. BONES:No aggressive osseous lesions. OTHER:Negative. CONCLUSION: 1. No focal consolidation or edema. Dictated by: Danie Grewal MD on 07/20/2020 at 04:56 AM
[2020-07-20] MEDS ORDERED: NS 1000ML 1,000 ML ONE (05:06)
[2020-07-20] MEDS ORDERED: MORPHINE SULFATE ONE (05:06)
[2020-07-20] MEDS ORDERED: ZOFRAN ONE ×2 (05:06→06:09)
[2020-07-20 05:17] LABS: ALANINE AMINOTRANSFERASE(ML) 134 U/L (12-78); ALKALINE PHOSPHATASE 271 U/L (50-136); ASPARTATE AMINO TRANSFERASE 74 U/L (0-35); CALCIUM 9.5 mg/dL (8.4-10.5); CARBON DIOXIDE 29.1 mmol/L (20.0-32); GLUCOSE 99 mg/dL (70-110)
[2020-07-20] MEDS ORDERED: MORPHINE SULFATE IV STA (05:17)
[2020-07-20] MEDS ORDERED: NS 1000ML 1,000 ML IV STA (05:17)
[2020-07-20] MEDS ORDERED: ZOFRAN IV STA ×2 (05:17→06:06)
--- NOTE | 2020-07-20 05:21 | ER.PDOC ---
General Chief Complaint: Chest Pain-Cardiac Nature Stated Complaint: CHEST PAIN Time seen by MD: 05:18 Source: patient Exam Limitations: no limitations History of Present Illness Initial Comments Intermittent chest pain for past few days which woke her up from sleep this morning. She is SOB and nauseated but no vomiting. Pain is in the lower mid chest 07/24. Timing/Duration: intermittent Severity/Quality: severe, stabbing Radiation: shoulders, back Activities at Onset: rest, sleep Prior CP/Workup: Cardiac Cath Nitro Today/Relief: No Nitro Taken Today, 0.4 mg x 1, Mild Relief Associated Symptoms: nausea/vomiting, shortness of breath Allergies: Coded Allergies: No Known Allergies (Unverified , 12/23/15) Home Meds Reported Medications Loratadine (LORATADINE) 10 Mg Tablet, 1 TAB PO DAILY, #30 TAB 5 Refills 06/13/18 Duloxetine Hcl (CYMBALTA) 60 Mg Capsule.dr, 1 CAP PO DAILY, #90 CAP 3 Refills 06/13/18 Ferrous Sulfate (FERROUS SULFATE) 325 Mg Tablet, 1 TAB PO BID, #60 TAB 3 Refills 06/13/18 Lisinopril (LISINOPRIL) 20 Mg Tablet, 1 TAB PO DAILY, #30 TAB 5 Refills 06/13/18 Cholecalciferol (Vitamin D3) (VITAMIN D3) 50,000 Unit Capsule, 03524 UNIT PO Q7D, CAPSULE 06/12/18 Calcium Carb & Cit/Vitamin D3 (CALCIUM + D3 ER TABLET) 1 Each Tablet.er, 1 EACH PO DAILY24 06/12/18 Sarilumab (Kevzara) 200 Mg/1.14 Ml Syringe, 200 MG SQ EVERY 14 DAYS 06/12/18 Fluticasone Propionate (FLUTICASONE PROPIONATE) 16 Gm [place].susp, 1 SPR HHN PRN PRN for resp, #16 08/03/16 Lovastatin (LOVASTATIN) 10 Mg Tablet, 1 TAB PO DAILY, #30 08/03/16 Pregabalin (LYRICA) 100 Mg Capsule, 1 CAP PO DAILY, #60 08/03/16 Hydrocodone Bit/Acetaminophen (NORCO 10-325) 1 Each Tablet, 1 TAB PO QID, #120 TAB 10/13/15 Gabapentin (GABAPENTIN) 100 Mg Capsule, 200 MG PO TID, CAPSULE 07/02/15 Meclizine Hcl (MECLIZINE HCL) 25 Mg Tablet, 25 MG PO TID, TABLET 07/02/15 Alprazolam (ALPRAZOLAM) 1 Mg Tablet, 1 MG PO TID, TABLET 07/02/15 Levothyroxine Sodium (LEVOTHYROXINE SODIUM) 150 Mcg Tablet, 150 MCG PO DAILY, TABLET 07/02/15 Cyclobenzaprine Hcl (FLEXERIL) 10 Mg Tablet, 10 MG PO TID PRN for PAIN, TABLET 07/02/15 Past Medical History Medical History: cardiac problems, high cholesterol, hypertension Surgical History: no surgical history Social History Alcohol Use: none Drug Use: none Constitutional: no symptoms reported EENTM: no symptoms reported Respiratory: see HPI Cardiovascular: see HPI Gastrointestinal: see HPI Genitourinary: no symptoms reported Musculoskeletal: no symptoms reported All Other Systems: Reviewed and Negative Physical Exam General Appearance: No Apparent Distress, WD/WN HEENT: Normal ENT Inspection Neck: Non-Tender, Full Range of Motion, Supple, Normal Inspection Respiratory: chest non-tender, lungs clear, normal breath sounds, no respiratory distress, no accessory muscle use Cardiovascular: Normal Peripheral Pulses, Regular Rate, Rhythm, No Edema, No Gallop, No JVD, No Murmur Gastrointestinal: Normal Bowel Sounds, No Organomegaly, No Pulsatile Mass, Non Tender, Soft Extremities: Normal Range of Motion, Non-Tender, Normal Inspection, No Pedal Edema, No Calf Tenderness, Normal Capillary Refill 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 (07/20/20 04:29) D-Dimer (07/20/20 04:29) Xr Chest 1v (07/20/20:29) Ekg-Routine (07/20/20 04:29) Nitroglycerin (Nitrostat) (07/20/20 04:30) Aspirin (Aspirin) (07/20/20 04:29) 0.9 % Sodium Chloride (Ns 1000ml) (07/20/20 05:06) Ondansetron Hcl/Pf (Zofran) (07/20/20 05:06) Morphine Sulfate (Morphine Sulfate) (07/20/20 05:06) Ondansetron Hcl/Pf (Zofran) (07/20/20 05:17) Morphine Sulfate (Morphine Sulfate) (07/20/20 05:17) 0.9 % Sodium Chloride (Ns 1000ml) (07/20/20 05:17) Promethazine Hcl (Phenergan) (07/20/20 05:35) Vital Signs Date Time Temp Pulse Resp B/P (MAP) Pulse Ox O2 Delivery O2 Flow Rate FiO2 07/20/20 04:31 98.3 59 16 07/20/20 04:31 98.3 59 16 99 07/20/20 04:31 98.3 59 16 129/73 (91) 99 Administered Medications Medications (Trade) Dose Ordered Sig/Freda Route PRN Reason Start Time Stop Time Status Last Admin Dose Admin Aspirin (Aspirin) 325 mg STAT STAT PO 07/20/20 04:29 07/20/20 04:31 DC 07/20/20 04:42 325 MG Morphine Sulfate (Morphine Sulfate) 4 mg STAT STAT IV 07/20/20 05:17 07/20/20 05:19 DC 07/20/20 05:14 4 MG Nitroglycerin (Nitrostat) 0.4 mg PRN PRN SL CHEST PAIN 07/20/20 04:30 08/19/20 04:29 07/20/20 04:42 0.4 MG Ondansetron HCl (Zofran) 4 mg STAT STAT IV 07/20/20 05:17 07/20/20 05:19 DC 07/20/20 05:14 4 MG Sodium Chloride 1,000 ml @ 100 mls/hr Q10H STAT IV 07/20/20 05:17 07/20/20 15:16 07/20/20 05:14 100 MLS/HR Laboratory Tests Test 07/20/20 04:35 White Blood Count 6.0 10^3/uL (4.5-11.0) Red Blood Count 5.13 10^6/uL (4.00-5.20) Hemoglobin 15.5 g/dL (12.0-15.0) H Hematocrit 45.3 % (36.0-46.0) Mean Corpuscular Volume 88.3 fL (78-100) Mean Corpuscular Hemoglobin 30.2 pg (26-34) Mean Corpuscular Hemoglobin Concent 34.2 g/dL (33-36.5) Red Cell Distribution Width 13.7 % (11.5-14.5) Platelet Count 225 10^3/uL (150-400) Mean Platelet Volume 9.8 fL (7.8-11.0) Neutrophils (%) (Auto) 30.0 % (41.0-85.0) L Lymphocytes (%) (Auto) 61.5 % (24.0-44.0) H Monocytes (%) (Auto) 6.9 % (5.0-12.0) Neutrophils # (Auto) 1.8 10^3/uL (1.8-7.7) Lymphocytes # (Auto) 3.67 10^3/uL1 (1.0-4.8) Monocytes # (Auto) 0.4 10^3/uL (0.3-0.8) Absolute Immature Granulocyte (auto 0.01 10^3 u/L (0-2) Absolute Eosinophils (auto) 0.1 10^3/uL (0.0-0.2) Immature Granulocytes % 0.20 % (0.00-0.50) Eosinophils % 1.2 % (0.0-5.0) Basophils % 0.2 % (0.0-0.2) Basophils # 0.0 10^3/uL (0.0-0.1) Prothrombin Time 9.9 SEC (9.3-11.3) Prothrombin Time INR (Non-Therap) 1.0 Activated Partial Thromboplast Time 22.0 SEC (24.67-30.72) D-Dimer 0.26 mg/L (0.19-0.49) Sodium Level 139 mmol/L (132-145) Potassium Level 3.6 mmol/L (3.6-5.2) Chloride Level 100.0 mmol/L (96-109) Carbon Dioxide Level 29.1 mmol/L (20.0-32) Anion Gap 13.5 Blood Urea Nitrogen 23 mg/dL (7-18) H Creatinine 1.08 mg/dL (0.59-1.40) Estimated GFR () 63.1 (>/=60) Est GFR (CKD-EPI)(Non-Afr [place]) 52.1 (>/=60) BUN/Creatinine Ratio 21.0 Glucose Level 99 mg/dL (70-110) Calcium Level 9.5 mg/dL (8.4-10.5) Total Bilirubin 4.3 mg/dL (0.2-1.0) H Aspartate Amino Transferase (AST) 74 U/L (0-35) H Alanine Aminotransferase (ALT) 134 U/L (12-78) H Alkaline Phosphatase 271 U/L (50-136) H Total Creatine Kinase 97 U/L (26-192) Creatine Kinase MB 0.5 ng/mL (0.5-3.6) Troponin I < 0.02 ng/mL (0.00-0.05) Pro-B-Type Natriuretic Peptide 35 pg/mL (0-125) Total Protein 7.6 g/dL (6.4-8.2) Albumin 4.3 g/dL (3.4-5.0) Globulin 3.3 Albumin/Globulin Ratio 1.303 EKG/XRAY/CT/US EKG: NSR, no ST T wave changes XRAY: chest (No active disease) ER DEPART Departure Time of Disposition: 05:54 Disposition: 09 ADMITTED INPATIENT Impression: Primary Impression: Chest pain Condition: Stable Referrals: DIANN ARRIETA CONSTRUCTION SERVICES TECHNICIAN (PCP) PRIMARY CARE PROVIDER Comments Admitted to Dr. Banks Duration or Time Spent with Pa: 60 min Problem Qualifiers Primary Impression: Chest pain Chest pain type: unspecified Qualified Codes: R07.9 - Chest pain, unspecified JW CHOWDHURY MD Jul 20, 2020 05:21
[2020-07-20] MEDS ORDERED: PHENERGAN ONE (05:35)
--- NOTE | 2020-07-20 05:35 | NUR ---
VOMITING PATIENT VOMITING CLEAR EMESIS INTO BASIN, DR. CHOWDHURY NOTIFIED. NEW ORDERS RECEIVED FOR PHENERGAN 25MG IV X 1 DOSE.
--- NOTE | 2020-07-20 05:40 | NUR ---
ADMISSION DR. CHOWDHURY AT BEDSIDE TO SPEAK TO PATIENT AND FAMILY MEMBER REGARDING ADMISSION FOR CHEST PAIN. AGREEABLE TO ADMISSION. DR. CHOWDHURY ALSO EXPLAINED HER ELEVATED LIVE ENZYMES, PATIENT STATED THAT SHE IS AWARE THAT SHE HAS FATTY LIVER DISEASE AND HER ENZYMES ARE ALWAYS ELEVATED.
--- NOTE | 2020-07-20 05:47 | NUR ---
SATS PATIENT SATS CONSISTENTLY 89-91% ON RA. PLACED ON 2L/NC, SATS INCREASED TO 98%
[2020-07-20] MEDS ORDERED: PROTONIX IV IV STA (06:06)
[2020-07-20] MEDS ORDERED: PHENERGAN IV STA (06:06)
[2020-07-20] MEDS ORDERED: PROTONIX IV IV ONE (06:08)
--- NOTE | 2020-07-20 06:29 | NUR ---
TRANSFER ATTEMPT CALLED [facility] TO TRANSFER PATIENT. [facility] NOT READY FOR PATIENT, WILL CALL BACK WHEN THEY ARE READY TO ACCEPT PATIENT.
--- NOTE | 2020-07-20 07:15 | NUR ---
TRANSFER TO [place] PATIENT TRANSFERRED TO [place] VIA STRETCHER. VITALS STABLE AT TIME OF DEPARTURE. NO S/S OF DISTRESS NOTED. REPORT GIVEN TO MARISOL RN. VERBALIZED UNDERSTANDING AND DENIES FURTHER QUESTIONS. RELINQUISHED CARE.
--- NOTE | 2020-07-20 07:55 | NUR ---
REPORT PATIENT ARRIVED ON UNIT VIA STRETCHER. RECEIVED REPORT FROM ER NURSE, MILA RN. ASSUMED CARE AT THIS TIME. PATIENT IS RESTING IN BED, LOW, AMANUEL POSITION WITH SIDE RAILS UP X 2. CALL LIGHT WITHIN REACH. PATIENT DENIES ANY NEEDS AT THIS TIME
--- NOTE | 2020-07-20 10:53 | PCM.ECHO ---
APPROVED REPORT EXAM: Comprehensive 2D, Doppler, and color-flow Echocardiogram. Patient Location: IN-PATIENT Rhythm: NSR Indications Chest Pain 2D Dimensions LVOT Diameter 2.07 (1.8-2.4cm) LVEF(%) 66.16 (>50%) M-Mode Dimensions RVDd 1.65 (2.1-3.2cm) Left Atrium(MM) 4.45 (2.5-4.0cm) IVSd 0.70 (0.7-1.1cm) Aortic Root 2.70 (2.2-3.7cm) LVDd 4.85 (4.0-5.6cm) Aortic Cusp Exc 1.80 (1.5-2.0cm) PWd 0.70 (0.7-1.1cm) MV EPSS 0.19 (<0.5cm) IVSs 1.40 cm FS (%) 42.35 % LVDs 2.80 (2.0-3.8cm) ESV(Teich) 29.57 ml PWs 1.40 cm LVEF(%) 73.31 (>50%) Volumes Biplane 2D LV Volumes Biplane 2D LA Volumes LVEDv A4C 96.72 mL LA ESV Index LVESv A4C 32.73 mL Aortic Valve AoV Peak Brandon. 1.20 m/s AoV VTI 24.30 cm AO Peak GR. 6.15 mmHg AO Mean GR. 2.85 mmHg LVOT VTI 25.87 cm LVOT Peak Brandon. 0.77 m/s DEWAYNE(VTI)/BSA 3.58 cm2/m2 DEWAYNE (VTI) 3.58 cm2 Mitral Valve MV E Velocity 0.60m/s MR Peak Gr. 20.20mmHg MV A Velocity 0.65m/s TDI Lateral E' P. V 0.09m/s Medial E' P. V 0.09m/s Pulmonary Valve PV Peak Velocity 0.50m/s PV Peak Grad. 1.00mmHg RVOT VTI 14.80cm Tricuspid Valve TR P. Velocity 2.15m/s RAP ESTIMATE 10.00mmHg TR Peak Gr. 18.71mmHg RVSP 28.71mmHg LEFT VENTRICLE The left ventricle is normal size. The left ventricular systolic function is normal. The left ventricular ejection fraction is within the normal range. There is normal left ventricular wall thickness. There is normal LV segmental wall motion. There is no ventricular septal defect visualized. No left ventricle thrombus noted on this study. LVEF is 60-65%. RIGHT VENTRICLE The right ventricle is normal size. The right ventricular systolic function is normal. There is normal right ventricular wall thickness. ATRIA The left atrium size is normal. The right atrium size is normal. The interatrial septum is intact with no evidence for an atrial septal defect. AORTIC VALVE The aortic valve is normal in structure. There is no aortic valvular stenosis. No aortic regurgitation is present. There is no aortic valvular vegetation. MITRAL VALVE The mitral valve is normal in structure. There is no mitral valve stenosis. Mild mitral regurgitation. There is no evidence of mitral valve vegetations. TRICUSPID VALVE The tricuspid valve is normal in structure. There is no tricuspid valve stenosis. Mild tricuspid regurgitation. There is no tricuspid valve vegetations. PULMONIC VALVE The pulmonary valve is normal in structure. There is no pulmonic valvular stenosis. There is no pulmonic valvular regurgitation. GREAT VESSELS The aortic root is normal in size. Pulmonary artery is not well visualized. Aortic arch is not well visualized. IVC is not well visualized. PERICARDIUM There is no pericardial effusion. There is no pleural effusion. Other Information Study Quality: Fair <Conclusion> The left ventricular systolic function is normal. LVEF is 60-65%. Mild mitral regurgitation. Mild tricuspid regurgitation. Electronically signed by : ANIL LEMUS. 07/20/2020 10:52:42
[2020-07-20] MEDS ORDERED: HYDR12.58 PO (12:06)
[2020-07-20] MEDS ORDERED: HYDR200T5 PO (12:06)
[2020-07-20] MEDS ORDERED: SULF500T36 PO (12:06)
[2020-07-20] MEDS ORDERED: CLOP75TA52 PO (12:06)
[2020-07-20] MEDS ORDERED: ALBU2.5V2 IH (12:06)
[2020-07-20] MEDS ORDERED: LEXISCAN IV ONE (16:00)
--- NOTE | 2020-07-20 16:17 | CNH ---
DATE OF CONSULTATION: 07/20/2020 REASON FOR CONSULTATION: Chest pain. HISTORY OF PRESENT ILLNESS: This is a 60-year-old female who presented to the Emergency Room last night with symptoms of sharp stabbing chest pain located in the substernal region that woke her up from sleep last night. She states that her symptoms of chest pain radiates to her back. Apparently, her symptoms started about a week ago, but progressively got worse, especially last night. Upon presentation to the ED, EKG done shows normal sinus rhythm with nonspecific ST-T wave changes. Troponin is currently negative x 2. Consultation has been placed to Cardiology Service for evaluation. PAST MEDICAL HISTORY: Significant for: 1. Hypertension. 2. Hyperlipidemia. 3. Cerebrovascular accident. PAST SURGICAL HISTORY: Knee surgery as well as shoulder surgery. SOCIAL HISTORY: She denies alcohol use, denies illicit drug use, denies tobacco use. FAMILY HISTORY: She denies any family history of premature coronary artery disease. She also denies any family history of sudden cardiac . ALLERGIES: She has no known drug allergies. MEDICATIONS: She takes at home includes 1. Loratadine. 2. Duloxetine. 3. Ferrous sulfate. 4. Lisinopril 20 mg daily. 5. Vitamin D3. 6. Kevzara. 7. Fluticasone. 8. Lovastatin 10 mg p.o. daily. 9. Lyrica. 10. [place]. 11. Gabapentin. 12. Meclizine. 13. Alprazolam. 14. Levothyroxine. 15. Flexeril. REVIEW OF SYSTEMS: As per HPI and as per previous records. All systems reviewed and negative for interval change. PHYSICAL EXAMINATION: VITAL SIGNS: Blood pressure is 127/85, respiratory rate is 18, pulse is 56, temperature is 97.6, pulse oximetry is 99% on room air. GENERAL: She is in no apparent distress, alert and oriented x 3. HEENT: Normocephalic, atraumatic. Extraocular muscles are intact. Pupils are equally round and reactive to light and accommodation. HEART: S1, S2. No gallops, murmurs, rubs, or clicks. LUNGS: Clear to auscultation bilaterally. No wheezing, rhonchi or rales. ABDOMEN: Soft, nontender, nondistended. Positive bowel sounds in all 4 quadrants. EXTREMITIES: No cyanosis, no clubbing, no edema, +2 pedal pedis pulses palpable bilaterally. NEUROLOGIC: No neurological deficits. Sensation is intact. IMPRESSION: 1. Chest pain, rule out acute coronary syndrome. 2. Hypertension. 3. Hyperlipidemia. 4. History of cerebrovascular accident. RECOMMENDATIONS: This is a 60-year-old female who presented to the Emergency Department with symptoms of stabbing chest pain in the substernal region with radiation to the back. Troponins are currently negative x 2. EKG shows normal sinus rhythm with nonspecific ST-T wave changes. I would obtain a 2D echo to evaluate her left ventricular ejection fraction and structural integrity of her heart. I would also check a Lexiscan nuclear stress test to rule out myocardial ischemia. I certainly recommend to continue her home cardiac medications as well as to continue to trend troponins q.6 hours. She will be kept on telemetry for now. Further recommendations will be made based on the findings from cardiac ischemic workup. ANIL LEMUS D.O. DR: KRISTIE/kaur JOB# [id number]
[2020-07-20] MEDS ORDERED: FLEXERIL PO PRN (19:30)
[2020-07-20] MEDS ORDERED: PLAVIX PO SCH (19:30)
[2020-07-20] MEDS ORDERED: FLONASE NS PRN (19:30)
--- NOTE | 2020-07-20 19:40 | PCM.HP ---
HISTORY & PHYSICAL HISTORY & PHYSICAL DATE OF ADMISSION: 07/20/20 CHIEF COMPLAINT: chest pain HISTORY OF PRESENT ILLNESS: Mr. Freire is a very pleasant 60 y/o HF with PMHx as below, who presented to the ER overnight with sharp stabbing chest pain. This was substernal in location and woke up from sleep last night. She has associated nausea. Troponins were negative. She had no dyspnea and no sweating and no vomiting. She has some pain with deep breaths in. She has had pain like this before and off and on for a week, she said sometimes in the past her fibromyalgia feels like this. She reports significant increase in her anxiety lately to the point where it is debilitating for her, and wakes her from sleep. She has dreams about her sister and her father both of whom have . She denies any SI or HI and denies hallucinations. She does not have a psychiatrist but is interested in getting one. ALLERGIES: NKDA CURRENT MEDICATIONS: Loratidine Duloxetine Ferrous sulfate Lisinopril Vitamin D3 Flonase Kevzara Plaquenil Sulfasaliazine Lovastatin Lyrica [place] Gabapentin Meclizine Alprazalam Plavix Levothyroxine Flexeril PAST MEDICAL HISTORY: HTN, HLD, hx of CVA 13 years ago, fibromyalgia, anxiety disorder PAST SURGICAL HISTORY: Knee surgery, shoulder surgery, hiatal hernia repair SOCIAL HISTORY: Former smoker, denies etoh/drugs FAMILY HISTORY: Denies family hx of heart disease or sudden cardiac REVIEW OF SYSTEMS: As per HPI. Additionally denies fever, chills, passing out, dizziness, weakness, numbness, slurred speech, headache, stiff neck, cough, wheezing, shortness of breath, abd pain, vomiting, diarrhea, bleeding, rashes, dysuria. PHYSICAL EXAMINATION: GENERAL: NAD, comfortable VITAL SIGNS: T 98.3, HR 59, RR 16, BP 129/73, O2 99% on RA HEENT: PERRL, EOMI, Sclera nonicteric NECK: Supple, no JVD, trachea midline LUNGS: CTAB, nonlabored on RA HEART: RRR, no murmurs, nml S1S2 ABDOMEN: Soft, NTND, nml BS EXTREMITIES: No edema, distal pulses nml NEUROLOGIC: AOx4, tearful when talking about anxiety but appropriate affect for situation, neuro exam nonfocal with no deficits noted LABORATORY DATA: Na 139, K 3.6, Cl 100, CO2 29.1, Cr 1.08, BUN 23 Gluc 99 Tbili 4.3, AST 74, ALT 134, ALP 271 Ck 97, CKMB 0.5, Trop < 0.02 WBC 6.0, Hgb 15.5, Hct 45.3, Plt 225 INR 1.0, Dimer 0.26 CXR no focal consolidation or edema EKG sinus rhythm, nonspecific repolarization IMPRESSION/PLAN: Chest pain--cardiac vs GI vs anxiety most likely - Dimer negative - Trops neg, order echo and stress, cards consult placed - Could be esophageal spasm which also would improve with ntg most likely - Anxiety has been severe lately and she feels this is probably related Elevated LFTs and hyperbilirubinemia--patient reports this is chronic and denies GI symptoms - Regardless the bili is higher than I would expect and has an obstructive pattern. Will obtain RUQ sono and trend labs in am. Will try to call PCP tomorrow to get more info on this. Anxiety disorder--resume home xanax, will get info for referral to o/p psych program prior to dc. Denies SI. Chronic: resume home meds as appropriate Fibromyalgia HTN Hx CVA HLD VTE ppx--SQL FC Anticipate dc in am CORNELIUS HAYWOOD DO Jul 20, 2020 19:40
[2020-07-20] MEDS ORDERED: NORCO 7.5MG PO ONE (20:46)
[2020-07-20] MEDS: NORCO 10MG PO SCH (20:55)
[2020-07-20] MEDS: NEURONTIN PO SCH (20:55)
[2020-07-20] MEDS: PLAQUENIL PO SCH (20:56)
[2020-07-20] MEDS ORDERED: LYRICA PO SCH (21:00)
[2020-07-20] MEDS ORDERED: XANAX PO SCH (21:00)
[2020-07-20] MEDS ORDERED: AZULFIDINE PO SCH (21:00)
[2020-07-20] MEDS: VENTOLIN IH SCH (21:40)
[2020-07-21 00:30] VITALS: BP 128/83
--- NOTE | 2020-07-21 02:22 | STRESS ---
DATE OF SERVICE: 07/20/2020 CARDIAC STRESS TEST REASON FOR STUDY: Chest pain. Baseline EKG shows sinus bradycardia with nonspecific ST-T wave changes. Stress EKG shows normal sinus rhythm, unchanged from baseline. At recovery, EKG shows normal sinus rhythm, unchanged from baseline. Baseline blood pressure is 122/85 and remained the same during stress. At recovery, the blood pressure is 112/78. Baseline heart rate is 59 beats per minute and miguel to 75 beats per minute during stress. At recovery, the heart rate is 93 beats per minute. Blood pressure and heart rate were appropriate for stress. There were no significant symptoms noted during stress. There were no arrhythmias noted during stress. EKG portion of stress test is negative for myocardial ischemia. Nuclear images shows homogeneous tracer distribution across all wall segments in both rest and stress images with no evidence of myocardial ischemia or infarction. Left ventricular ejection fraction is 67%. EDV is 26 mL, ESV is 9 mL. The left ventricle is normal in size. Gated motion images shows normal wall motion across all segments of the left ventricle. TID is 1.22. There is no evidence of diaphragmatic attenuation artifact. IMPRESSION: 1. Normal myocardial perfusion imaging with no evidence of myocardial ischemia or infarction. 2. Left ventricular ejection fraction is 67%. 3. This is a negative study. Victoriano ROLLINS/kaur JOB# [id number]
[2020-07-21 04:50] VITALS: BP 124/75
[2020-07-21 05:47] LABS: BASOPHIL % 0.2 % (0.0-0.2); EOSINOPHIL # 0.1 10^3/uL (0.0-0.2); EOSINOPHIL % 1.9 % (0.0-5.0); LYMPHOCYTES # 2.19 10^3/uL1 (1.0-4.8); LYMPHOCYTES % 51.3 % (24.0-44.0); MEAN CORP HGB 29.9 pg (26-34); MONOCYTES # 0.3 10^3/uL (0.3-0.8); MONOCYTES % 7.3 % (5.0-12.0); NEUTROPHIL # 1.7 10^3/uL (1.8-7.7); NEUTROPHILS % 39.3 % (41.0-85.0); PLATELET COUNT 187 10^3/uL (150-400)
[2020-07-21 06:10] LABS: CALCIUM 8.6 mg/dL (8.4-10.5); CARBON DIOXIDE 26.4 mmol/L (20.0-32)
--- NOTE | 2020-07-21 08:56 | DIREP ---
PROCEDURE:US ABDOMEN LIMITED (SINGLE ORGAN - QUAD) COMPARISON:[facility], CT, CT-ABDOMEN /PELVIS W/O CONTRAST, 01/03/2012, 09:39 AM. [facility], US, US ABDOMEN LIMITED(SINGLE ORGAN-QUAD), 12/26/2019, 08:39 AM. [facility], US, US ABDOMEN LIMITED(SINGLE ORGAN-QUAD), 03/10/2016, 08:54 AM. INDICATIONS:elevated bambi and LFTs TECHNIQUE:High resolution sonographic examination was performed of the abdomen. FINDINGS: PANCREAS:The pancreas is largely obscured by bowel gas shadowing. LIVER:Increased hepatic echotexture consistent with hepatic steatosis. There is decreased echotexture adjacent to the gallbladder fossa consistent with focal fatty sparing. No focal hepatic lesion is identified. Hepatopetal flow in the portal vein. GALLBLADDER:There is sludge present in the dependent portion of the gallbladder. No evidence for gallbladder wall thickening or pericholecystic fluid. Negative sonographic Blakely's sign. BILIARY:There is no biliary ductal dilatation. RIGHT KIDNEY:Normal. No hydronephrosis. OTHER:Negative. No ascites is identified. CBD:0.4 cm GALLBLADDER WALL: 0.3 cm RIGHT KIDNEY: 9.3 x 4.3 x 4.3 cm CONCLUSION:No acute intra-abdominal process demonstrated Dictated by: [facility] Physician on 07/21/2020 at 08:44 AM Read in [place] ac
[2020-07-21] MEDS ORDERED: CLARITIN PO SCH (09:00)
[2020-07-21] MEDS ORDERED: SYNTHROID PO SCH (09:00)
[2020-07-21] MEDS ORDERED: ZESTRIL PO SCH (09:00)
[2020-07-21] MEDS ORDERED: HYDROCHLOROTHIAZIDE PO SCH (09:00)
[2020-07-21] MEDS: VENTOLIN IH SCH (09:00)
[2020-07-21 09:08] VITALS: BP 119/82
[2020-07-21] MEDS: NEURONTIN PO SCH (09:30)
[2020-07-21] MEDS: PLAQUENIL PO SCH (09:33)
[2020-07-21] MEDS: NORCO 10MG PO SCH (09:36)
--- NOTE | 2020-07-21 10:15 | NUR ---
DISCHARGE PLAN CASE MANAGEMENT VISITED WITH PATIENT AT BEDSIDE CONCERNING DISCHARGE PLAN AND NEED. LIVES AT HOME WITH DAUGHTER AND GRANDCHILDREN. HAS DME INCLUDING CANE AND NEBULIZER. SHE UTILIZES TO AMBULATE TO RESTROOM. PT REQUESTED TO HAVE OUTPATIENT PSYCH SERVICES. CM GAVE PT A BROCHURE ON FOR THE BEHAVIORAL HEALTH CLINICAL. SHE STATED, "I AM NOT SUICIDAL. I AM JUST ANGRY AND HURT AND NEED TO TALK TO A COUNSELOR SO I STOP TAKING IT OUT ON MY FAMILY." PCP IS ZULEIMA ARRIETA NP. DISCHARGE PLAN IS DISCHARGE HOME WITH FAMILY AND CONTINUE SELF CARE. CM LEFT CONTACT INFORMATION AT BEDSIDE AND WILL CONTINUE TO FOLLOW FOR DISCHARGE NEEDS.
--- NOTE | 2020-07-21 10:50 | PRM.DC ---
Discharge Summary Chief Complaint: Chest pain HPI and Diagnostic Evaluation HISTORY OF PRESENT ILLNESS: Mr. Freire is a very pleasant 60 y/o HF with PMHx as below, who presented to the ER overnight with sharp stabbing chest pain. This was substernal in location and woke up from sleep last night. She has associated nausea. Troponins were negative. She had no dyspnea and no sweating and no vomiting. She has some pain with deep breaths in. She has had pain like this before and off and on for a week, she said sometimes in the past her fibromyalgia feels like this. She reports significant increase in her anxiety lately to the point where it is debilitating for her, and wakes her from sleep. She has dreams about her sister and her father both of whom have . She denies any SI or HI and denies hallucinations. She does not have a psychiatrist but is interested in getting one. Patient History: Asthma G8 SISTER 19 CHILD G8 BROTHER Cerebrovascular disorder G8 SISTER Congestive heart failure 33 FATHER, , Age:86 Diabetes mellitus 32 MOTHER, , Age:56 G8 BROTHER G8 BROTHER G8 SISTER G8 SISTER G8 SISTER Diabetes mellitus 32 MOTHER, , Age:56 G8 BROTHER G8 BROTHER G8 SISTER G8 SISTER G8 SISTER FH: arthritis G8 BROTHER G8 SISTER G8 BROTHER G8 BROTHER G8 BROTHER G8 SISTER FH: breast cancer G8 SISTER G8 SISTER G8 SISTER FH: breast cancer in first degree relative FH: cirrhosis G8 BROTHER, , Age:54 FH: coronary artery bypass surgery 33 FATHER, , Age:86 FH: coronary artery disease 33 FATHER, , Age:86 FH: heart attack 33 FATHER, , Age:86 G8 BROTHER 33 FATHER FH: heart attack 33 FATHER, , Age:86 G8 BROTHER 33 FATHER FH: kidney failure 32 MOTHER, , Age:56 G8 SISTER G8 SISTER FH: liver cancer G8 BROTHER, , Age:54 32 MOTHER, , Age:56 G8 BROTHER FH: sleep apnea G8 BROTHER FHx: heart disease 33 FATHER, , Age:86 G8 BROTHER 33 FATHER Hypertension 33 FATHER, , Age:86 G8 BROTHER G8 BROTHER G8 SISTER G8 SISTER G8 SISTER No known health problems G8 BROTHER, , Age:23 19 CHILD Allergies: Coded Allergies: No Known Allergies (Unverified , 12/23/15) [place] [address] PCM STRESS TEST PATIENT NAME: CHANDLER FREIRE MR#: [id number] : 1960 LOCATION: [place] ROOM#: 330 BED: A SEX: F AGE: 60 ADMIT/REGISTRATION DATE/TIME:07/20/20 04 cc: DATE OF SERVICE: 07/20/2020 CARDIAC STRESS TEST REASON FOR STUDY: Chest pain. Baseline EKG shows sinus bradycardia with nonspecific ST-T wave changes. Stress EKG shows normal sinus rhythm, unchanged from baseline. At recovery, EKG shows normal sinus rhythm, unchanged from baseline. Baseline blood pressure is 122/85 and remained the same during stress. At recovery, the blood pressure is 112/78. Baseline heart rate is 59 beats per minute and miguel to 75 beats per minute during stress. At recovery, the heart rate is 93 beats per minute. Blood pressure and heart rate were appropriate for stress. There were no significant symptoms noted during stress. There were no arrhythmias noted during stress. EKG portion of stress test is negative for myocardial ischemia. Nuclear images shows homogeneous tracer distribution across all wall segments in both rest and stress images with no evidence of myocardial ischemia or infarction. Left ventricular ejection fraction is 67%. EDV is 26 mL, ESV is 9 mL. The left ventricle is normal in size. Gated motion images shows normal wall motion across all segments of the left ventricle. TID is 1.22. There is no evidence of diaphragmatic attenuation artifact. IMPRESSION: 1. Normal myocardial perfusion imaging with no evidence of myocardial ischemia or infarction. 2. Left ventricular ejection fraction is 67%. 3. This is a negative study. ANIL DIALLO D.O. DR: KRISTIE/kaur JOB# [id number] <<<Electronically signed by ANIL DIALLO DO>07/21/20 07 >> [place] [address] PHONE: [facility] ECHOCARDIOGRAM STATUS: SIGNED PATIENT NAME: CHANDLER FREIRE MR#: [id number] : 1960 SEX: F AGE: 60 LOCATION: MS PT STATUS: ADM IN ROOM/BED: 330-A ORDERING PROVIDER: CORNELIUS HAYWOOD DO REPORT#: [id number] SERVICE DATE/TIME:07/20/200 APPROVED REPORT EXAM: Comprehensive 2D, Doppler, and color-flow Echocardiogram. Patient Location: IN-PATIENT Rhythm: NSR Indications Chest Pain 2D Dimensions LVOT Diameter 2.07 (1.8-2.4cm) LVEF(%) 66.16 (>50%) M-Mode Dimensions RVDd 1.65 (2.1-3.2cm) Left Atrium(MM) 4.45 (2.5-4.0cm) IVSd 0.70 (0.7-1.1cm) Aortic Root 2.70 (2.2-3.7cm) LVDd 4.85 (4.0-5.6cm) Aortic Cusp Exc 1.80 (1.5-2.0cm) PWd 0.70 (0.7-1.1cm) MV EPSS 0.19 (<0.5cm) IVSs 1.40 cm FS (%) 42.35 % LVDs 2.80 (2.0-3.8cm) ESV(Teich) 29.57 ml PWs 1.40 cm LVEF(%) 73.31 ( >50%) Volumes Biplane 2D LV Volumes Biplane 2D LA Volumes LVEDv A4C 96.72 mL LA ESV Index LVESv A4C 32.73 mL Aortic Valve AoV Peak Brandon. 1.20 m/s AoV VTI 24.30 cm AO Peak GR. 6.15 mmHg AO Mean GR. 2.85 mmHg LVOT VTI 25.87 cm LVOT Peak Brandon. 0.77 m/s DEWAYNE(VTI)/BSA 3.58 cm2/m2 DEWAYNE (VTI) 3.58 cm2 Mitral Valve MV E Velocity 0.60m/s MR Peak Gr. 20.20mmHg MV A Velocity 0.65m/s TDI Lateral E' P. V 0.09m/s Medial E' P. V 0.09m/s Pulmonary Valve PV Peak Velocity 0.50m/s PV Peak Grad. 1.00mmHg RVOT VTI 14.80cm Tricuspid Valve TR P. Velocity 2.15m/s RAP ESTIMATE 10.00mmHg TR Peak Gr. 18.71mmHg RVSP 28.71mmHg LEFT VENTRICLE The left ventricle is normal size. The left ventricular systolic function is normal. The left ventricular ejection fraction is within the normal range. There is normal left ventricular wall thickness. There is normal LV segmental wall motion. There is no ventricular septal defect visualized. No left ventricle thrombus noted on this study. LVEF is 60-65%. RIGHT VENTRICLE The right ventricle is normal size. The right ventricular systolic function is normal. There is normal right ventricular wall thickness. ATRIA The left atrium size is normal. The right atrium size is normal. The interatrial septum is intact with no evidence for an atrial septal defect. AORTIC VALVE The aortic valve is normal in structure. There is no aortic valvular stenosis. No aortic regurgitation is present. There is no aortic valvular vegetation. MITRAL VALVE The mitral valve is normal in structure. There is no mitral valve stenosis. Mild mitral regurgitation. There is no evidence of mitral valve vegetations. TRICUSPID VALVE The tricuspid valve is normal in structure. There is no tricuspid valve stenosis. Mild tricuspid regurgitation. There is no tricuspid valve vegetations. PULMONIC VALVE The pulmonary valve is normal in structure. There is no pulmonic valvular stenosis. There is no pulmonic valvular regurgitation. GREAT VESSELS The aortic root is normal in size. Pulmonary artery is not well visualized. Aortic arch is not well visualized. IVC is not well visualized. PERICARDIUM There is no pericardial effusion. There is no pleural effusion. Other Information Study Quality: Fair <Conclusion> The left ventricular systolic function is normal. LVEF is 60-65%. Mild mitral regurgitation. Mild tricuspid regurgitation. Electronically signed by : ANIL DIALLO. 07/20/2020 10:52:42 <<07/20/20 1053>> >> [place] [address] PHONE: DIAGNOSTIC IMAGING REPORT STATUS: SIGNED PATIENT NAME: CHANDLER FREIRE MR#: [id number] : 1960 SEX: F AGE: 60 LOCATION: MS PT STATUS: ADM IN ROOM/BED: 330-A ORDERING PROVIDER: CORNELIUS HAYWOOD DO REPORT#: [id number] SERVICE DATE/TIME:07/20/20 0420 ACCESSION NUMBER(S): [id number] PROCEDURE:US ABDOMEN LIMITED (SINGLE ORGAN - QUAD) COMPARISON:[facility], CT, CT-ABDOMEN /PELVIS W/O CONTRAST, 01/03/2012, 09:39 AM. [facility], US, US ABDOMEN LIMITED(SINGLE ORGAN-QUAD), 12/26/2019, 08:39 AM. [facility], US ABDOMEN LIMITED(SINGLE ORGAN-QUAD), 03/10/2016, 08:54 AM. INDICATIONS:elevated bambi and LFTs TECHNIQUE:High resolution sonographic examination was performed of the abdomen. FINDINGS: PANCREAS:The pancreas is largely obscured by bowel gas shadowing. LIVER:Increased hepatic echotexture consistent with hepatic steatosis. There is decreased echotexture adjacent to the gallbladder fossa consistent with focal fatty sparing. No focal hepatic lesion is identified. Hepatopetal flow in the portal vein. GALLBLADDER:There is sludge present in the dependent portion of the gallbladder. No evidence for gallbladder wall thickening or pericholecystic fluid. Negative sonographic Blakely's sign. BILIARY:There is no biliary ductal dilatation. RIGHT KIDNEY:Normal. No hydronephrosis. OTHER:Negative. No ascites is identified. CBD:0.4 cm GALLBLADDER WALL: 0.3 cm RIGHT KIDNEY: 9.3 x 4.3 x 4.3 cm CONCLUSION:No acute intra-abdominal process demonstrated Dictated by: KRISSYA Physician on 07/21/2020 at 08:44 AM Read in [facility] DIAGNOSTIC IMAGING REPORT STATUS: SIGNED PATIENT NAME: CHANDLER FREIRE MR#: [id number] : 1960 SEX: F AGE: 60 LOCATION: ER PT STATUS: REG ER ROOM/BED: ORDERING PROVIDER: JW CHOWDHURY MD REPORT#: [id number] SERVICE DATE/TIME:07/20/200 ACCESSION NUMBER(S): [id number] PROCEDURE:CHEST 1 VIEW COMPARISON:[facility], CR, XRAY CHEST SINGLE VW, 04/05/2018, 03:06 PM. [facility], CR, XRAY CHEST SINGLE VW, 08/03/2016, 02:57 PM. INDICATIONS:Chest pain FINDINGS: LUNGS/PLEURA:No significant pulmonary parenchymal abnormalities. No effusions. VASCULATURE:Normal. Unremarkable pulmonary vasculature. CARDIAC:Normal. No cardiac silhouette abnormality or cardiomegaly. MEDIASTINUM:Normal. No visible mass or adenopathy. BONES:No aggressive osseous lesions. OTHER:Negative. CONCLUSION: 1. No focal consolidation or edema. Dictated by: Danie Grewal MD on 07/20/2020 at 04:56 AM Home Meds Reported Medications Sulfasalazine (SULFAZINE EC) 500 Mg Tablet.dr, 2 TAB PO BID for 30 Days, #120 TAB 0 Refills 07/20/20 Hydroxychloroquine Sulfate (HYDROXYCHLOROQUINE SULFATE) 200 Mg Tablet, 1 TAB PO BID, #180 TAB 1 Refill 07/20/20 Hydrochlorothiazide (HYDROCHLOROTHIAZIDE) 12.5 Mg Tablet, 1 TAB PO DAILY, #30 TAB 5 Refills 07/20/20 Clopidogrel Bisulfate (PLAVIX) 75 Mg Tablet, 1 TAB PO QD for 30 Days, #30 TAB 0 Refills 07/20/20 Albuterol Sulfate (ALBUTEROL SULFATE) 2.5 Mg/3 Ml Vial.neb, 2.5 MG IH RTBID, EA 07/20/20 Loratadine (LORATADINE) 10 Mg Tablet, 1 TAB PO DAILY, #30 TAB 5 Refills 06/13/18 Lisinopril (LISINOPRIL) 20 Mg Tablet, 1 TAB PO DAILY, #30 TAB 5 Refills 06/13/18 Cholecalciferol (Vitamin D3) (VITAMIN D3) 50,000 Unit Capsule, 29156 UNIT PO Q7D, CAPSULE 06/12/18 Calcium Carb & Cit/Vitamin D3 (CALCIUM + D3 ER TABLET) 1 Each Tablet.er, 1 EACH PO DAILY24 06/12/18 Sarilumab (Kevzara) 200 Mg/1.14 Ml Syringe, 200 MG SQ EVERY 14 DAYS 06/12/18 Fluticasone Propionate (FLUTICASONE PROPIONATE) 16 Gm [place].susp, 1 SPR HHN PRN PRN for resp, #16 08/03/16 Lovastatin (LOVASTATIN) 10 Mg Tablet, 1 TAB PO DAILY, #30 08/03/16 Pregabalin (LYRICA) 100 Mg Capsule, 2 CAP PO BID, #60 08/03/16 Hydrocodone Bit/Acetaminophen (NORCO 10-325) 1 Each Tablet, 1 TAB PO QID, #120 TAB 10/13/15 Gabapentin (GABAPENTIN) 100 Mg Capsule, 300 MG PO BID, CAPSULE 07/02/15 Alprazolam (ALPRAZOLAM) 1 Mg Tablet, 1 MG PO TID, TABLET 07/02/15 Levothyroxine Sodium (LEVOTHYROXINE SODIUM) 150 Mcg Tablet, 150 MCG PO DAILY, TABLET 07/02/15 Cyclobenzaprine Hcl (FLEXERIL) 10 Mg Tablet, 10 MG PO TID PRN for PAIN, TABLET 07/02/15 Discontinued Reported Medications Duloxetine Hcl (CYMBALTA) 60 Mg Capsule.dr, 1 CAP PO DAILY, #90 CAP 3 Refills 06/13/18 Ferrous Sulfate (FERROUS SULFATE) 325 Mg Tablet, 1 TAB PO BID, #60 TAB 3 Refills 06/13/18 Meclizine Hcl (MECLIZINE HCL) 25 Mg Tablet, 25 MG PO TID, TABLET 07/02/15 Scheduled Albuterol Sulfate (Albuterol Sulfate), 2.5 MG IH RTBID, (Reported) Alprazolam (Alprazolam), 1 MG PO TID, (Reported) Calcium Carb & Cit/Vitamin D3 (Calcium + D3 Er Tablet), 1 EACH PO DAILY24, (Reported) Cholecalciferol (Vitamin D3) (Vitamin D3), 50,000 UNIT PO Q7D, (Reported) Clopidogrel Bisulfate (Plavix), 1 TAB PO QD, (Reported) Gabapentin (Gabapentin), 300 MG PO BID, (Reported) Hydrochlorothiazide (Hydrochlorothiazide), 1 TAB PO DAILY, (Reported) Hydrocodone Bit/Acetaminophen (Stephens 10-325), 1 TAB PO QID, (Reported) Hydroxychloroquine Sulfate (Hydroxychloroquine Sulfate), 1 TAB PO BID, (Reported) Levothyroxine Sodium (Levothyroxine Sodium), 150 MCG PO DAILY, (Reported) Lisinopril (Lisinopril), 1 TAB PO DAILY, (Reported) Loratadine (Loratadine), 1 TAB PO DAILY, (Reported) Lovastatin (Lovastatin), 1 TAB PO DAILY, (Reported) Pregabalin (Lyrica), 2 CAP PO BID, (Reported) Sarilumab (Kevzara), 200 MG SQ EVERY 14 DAYS, (Reported) Sulfasalazine (Sulfazine Ec), 2 TAB PO BID, (Reported) Scheduled PRN Cyclobenzaprine Hcl (Flexeril), 10 MG PO TID PRN for PAIN, (Reported) Fluticasone Propionate (Fluticasone Propionate), 1 SPR HHN PRN PRN for resp, (Reported) Discontinued Medications Duloxetine Hcl (Cymbalta), 1 CAP PO DAILY, (Reported) Discontinued Reason: No Longer Taking Ferrous Sulfate (Ferrous Sulfate), 1 TAB PO BID, (Reported) Discontinued Reason: No Longer Taking Meclizine Hcl (Meclizine Hcl), 25 MG PO TID, (Reported) Discontinued Reason: No Longer Taking Consultations Dr. Diallo, interventional cardiology Procedures Laboratory Tests Test 07/20/20 04:35 07/20/20 09:08 07/20/20 11:50 07/20/20 14:14 White Blood Count 6.0 10^3/uL (4.5-11.0) Red Blood Count 5.13 10^6/uL (4.00-5.20) Hemoglobin 15.5 g/dL (12.0-15.0) Hematocrit 45.3 % (36.0-46.0) Mean Corpuscular Volume 88.3 fL (78-100) Mean Corpuscular Hemoglobin 30.2 pg (26-34) Mean Corpuscular Hemoglobin Concent 34.2 g/dL (33-36.5) Red Cell Distribution Width 13.7 % (11.5-14.5) Platelet Count 225 10^3/uL (150-400) Mean Platelet Volume 9.8 fL (7.8-11.0) Neutrophils (%) (Auto) 30.0 % (41.0-85.0) Lymphocytes (%) (Auto) 61.5 % (24.0-44.0) Monocytes (%) (Auto) 6.9 % (5.0-12.0) Neutrophils # (Auto) 1.8 10^3/uL (1.8-7.7) Lymphocytes # (Auto) 3.67 10^3/uL1 (1.0-4.8) Monocytes # (Auto) 0.4 10^3/uL (0.3-0.8) Absolute Immature Granulocyte (auto 0.01 10^3 u/L (0-2) Absolute Eosinophils (auto) 0.1 10^3/uL (0.0-0.2) Immature Granulocytes % 0.20 % (0.00-0.50) Eosinophils % 1.2 % (0.0-5.0) Basophils % 0.2 % (0.0-0.2) Basophils # 0.0 10^3/uL (0.0-0.1) Prothrombin Time 9.9 SEC (9.3-11.3) Prothrombin Time INR (Non-Therap) 1.0 Activated Partial Thromboplast Time 22.0 SEC (24.67-30.72) D-Dimer 0.26 mg/L (0.19-0.49) Sodium Level 139 mmol/L (132-145) Potassium Level 3.6 mmol/L (3.6-5.2) Chloride Level 100.0 mmol/L (96-109) Carbon Dioxide Level 29.1 mmol/L (20.0-32) Anion Gap 13.5 Blood Urea Nitrogen 23 mg/dL (7-18) Creatinine 1.08 mg/dL (0.59-1.40) Estimated GFR () 63.1 (>/=60) Est GFR (CKD-EPI)(Non-Afr Ethiopian) 52.1 (>/=60) BUN/Creatinine Ratio 21.0 Glucose Level 99 mg/dL (70-110) Calcium Level 9.5 mg/dL (8.4-10.5) Total Bilirubin 4.3 mg/dL (0.2-1.0) Aspartate Amino Transf (AST/SGOT) 74 U/L (0-35) Alanine Aminotransferase (ALT/SGPT) 134 U/L (12-78) Alkaline Phosphatase 271 U/L (50-136) Total Creatine Kinase 97 U/L (26-192) Creatine Kinase MB 0.5 ng/mL (0.5-3.6) Troponin I < 0.02 ng/mL (0.00-0.05) < 0.02 ng/mL (0.00-0.05) < 0.02 ng/mL (0.00-0.05) < 0.02 ng/mL (0.00-0.05) Pro-B-Type Natriuretic Peptide 35 pg/mL (0-125) Total Protein 7.6 g/dL (6.4-8.2) Albumin 4.3 g/dL (3.4-5.0) Globulin 3.3 Albumin/Globulin Ratio 1.303 Test 07/20/20 17:53 07/21/20 05:11 Troponin I < 0.02 ng/mL (0.00-0.05) White Blood Count 4.3 10^3/uL (4.5-11.0) Red Blood Count 4.61 10^6/uL (4.00-5.20) Hemoglobin 13.8 g/dL (12.0-15.0) Hematocrit 41.4 % (36.0-46.0) Mean Corpuscular Volume 89.8 fL (78-100) Mean Corpuscular Hemoglobin 29.9 pg (26-34) Mean Corpuscular Hemoglobin Concent 33.3 g/dL (33-36.5) Red Cell Distribution Width 14.0 % (11.5-14.5) Platelet Count 187 10^3/uL (150-400) Mean Platelet Volume 9.9 fL (7.8-11.0) Neutrophils (%) (Auto) 39.3 % (41.0-85.0) Lymphocytes (%) (Auto) 51.3 % (24.0-44.0) Monocytes (%) (Auto) 7.3 % (5.0-12.0) Neutrophils # (Auto) 1.7 10^3/uL (1.8-7.7) Lymphocytes # (Auto) 2.19 10^3/uL1 (1.0-4.8) Monocytes # (Auto) 0.3 10^3/uL (0.3-0.8) Absolute Immature Granulocyte (auto 0 10^3 u/L (0-2) Absolute Eosinophils (auto) 0.1 10^3/uL (0.0-0.2) Immature Granulocytes % 0.00 % (0.00-0.50) Eosinophils % 1.9 % (0.0-5.0) Basophils % 0.2 % (0.0-0.2) Basophils # 0.0 10^3/uL (0.0-0.1) Sodium Level 141 mmol/L (132-145) Potassium Level 3.7 mmol/L (3.6-5.2) Chloride Level 107.0 mmol/L (96-109) Carbon Dioxide Level 26.4 mmol/L (20.0-32) Anion Gap 11.3 Blood Urea Nitrogen 18 mg/dL (7-18) Creatinine 0.94 mg/dL (0.59-1.40) Estimated GFR () 74.0 (>/=60) Est GFR (CKD-EPI)(Non-Afr Ethiopian) 61.2 (>/=60) BUN/Creatinine Ratio 19.0 Glucose Level 93 mg/dL (70-110) Calcium Level 8.6 mg/dL (8.4-10.5) Total Bilirubin 3.8 mg/dL (0.2-1.0) Aspartate Amino Transf (AST/SGOT) 57 U/L (0-35) Alanine Aminotransferase (ALT/SGPT) 103 U/L (12-78) Alkaline Phosphatase 203 U/L (50-136) Total Protein 6.7 g/dL (6.4-8.2) Albumin 3.5 g/dL (3.4-5.0) Globulin 3.2 Albumin/Globulin Ratio 1.093 Hospital Course Ms. Freire is a very pleasant 60 y/o HF who presented with abrupt onset of chest pain that woke her from sleep. Her workup was unremarkable here and chest pain resolved. Troponins were negative, as was d dimer. Stress test was nml and echo was unremarkable. Cardiology consulted while here and did not recommend any further workup. LFTs were elevated which she reports as chronic for her and she had no abdominal pain or fevers, abd sono revealed GB sludge but no e/o acute cholecystitis. LFTs trended down and she showed no e/o infection, and she plans to follow up with her event sales manager for her fatty liver within the next week which is reasonable. She did endorse significant anxiety while here which she feels may have been the cause of her chest pain, and she was provided information for outpatient counseling and psychiatry and will set up an appt. She denied any thoughts of self harm or SI while here. She felt great on day of discharge and had no complaints. All questions/concerns addressed on day of discharge. Condition/Impression Stable condition on day of discharge. Exam on day of discharge: VSS Gen NAD, comfortable CV RRR, nml S1S2 Lungs clear, resp nonlabored Abd soft NTND nml BS no masses palpated AOx4, mood nml, denies SI CORNELIUS HAYWOOD DO Jul 21, 2020 10:50
[2020-07-21 11:20] VITALS: BP 119/82
--- NOTE | 2020-07-21 11:20 | NUR ---
DISCHARGE SALINE LOCK DC'D, SITE CLEAR WITHOUT REDNESS OR EDEMA, TIP INTACT, DISCHARGE INSTRUCTIONS GIVEN AND QUESTIONS ANSWERED, VOICED UNDERSTANDING, DC'S VIA W/C TO PRIVATE VEHICLE IN APPARENT STABLE CONDITION
[2020-07-21] MEDS ORDERED: LIPITOR PO SCH (21:00)
== END 2020-07-21 11:39 | disposition home or self-care (01) ==
LOC: ER 04:20 → MS 06:04
PROVIDERS: ADMIT Family Medicine; ATTEND Family Medicine
DX: R07.89 Other chest pain (principal); R79.89 Other specified abnormal findings of blood chemistry; I10 Essential (primary) hypertension; E78.00 Pure hypercholesterolemia, unspecified; F41.9 Anxiety disorder, unspecified; M79.7 Fibromyalgia; E78.5 Hyperlipidemia, unspecified; Z86.73 Personal history of transient ischemic attack (TIA), and cerebral infarction without residual deficits; Z87.891 Personal history of nicotine dependence; Z79.899 Other long term (current) drug therapy
CPT/HCPCS: 36415 ×2; 71045; 76705; 78452; 80053 ×2; 82550; 82553; 83880; 84484; 85025 ×2; 85379; 85610; 85730; 93005; 93017; 93306; 94640 ×2; 96361; 96374; 96375; 96376; 99285; A9500; C9113; G0378 ×3; J2270; J2405; J2550; J2785; J7030; J7613 ×2; C9399

== ENCOUNTER → 2020-09-17 | Outpatient (CLI) | payer MEDICARE, MEDICAID ==
[~2020-09-17] MED LIST changes: +ALBU2.5V2 IH; +CLOP75TA52 PO; +HYDR12.58 PO; +SULF500T36 PO
--- NOTE | 2020-09-18 16:22 | PRP ---
DATE OF PROCEDURE: 09/17/2020 ARTERIAL DOPPLER ULTRASOUND INDICATION FOR PROCEDURE: Intermittent claudication. RIGHT LOWER EXTREMITY: The right [employer]AIL [employer] TECHNICIAN has a flow velocity of 73.9 cm/sec with triphasic waveforms. The right profunda femoris artery has a flow velocity of 54.3 cm/sec with triphasic waveforms. The right superficial femoral artery has a maximum flow velocity of 100.9 cm/sec with triphasic waveforms seen in the proximal to mid segment and biphasic waveforms seen in the distal segment. The right popliteal artery has a maximum flow velocity of 49 cm/sec with triphasic waveforms seen throughout. The right posterior tibial artery has biphasic waveforms seen throughout with a maximum flow velocity of 72.4 cm/sec. The right anterior tibial artery has biphasic waveforms seen throughout with maximum flow velocity of 63.6 cm/sec. The right lower extremity ankle-brachial index is 1.0. LEFT LOWER EXTREMITY: The left common femoral artery has a maximum flow velocity of 76.6 cm/sec with triphasic waveforms visualized. The left profunda femoris artery has a flow velocity of 79.1 cm/sec with biphasic waveforms seen. The left SFA has triphasic waveforms seen in the proximal to mid segment and biphasic waveform in the distal segment with a maximum flow velocity of 106.7 cm/sec. The left popliteal artery has a maximum flow velocity of 58.3 cm/sec with triphasic waveforms seen in the proximal segment and biphasic waveforms seen in the distal segment. The left posterior tibial artery has biphasic waveforms seen throughout with a maximum flow velocity of 67 cm/sec. The left anterior tibial artery has biphasic waveforms seen in the proximal segment and monophasic waveforms seen in the mid to distal segment with maximum flow velocity of 33.9 cm/sec. The left lower extremity ankle-brachial index is 0.9. IMPRESSION: 1. There is no evidence of hemodynamically significant stenosis in the right lower extremity. 2. There is no evidence of hemodynamically significant stenosis in the left lower extremity. 3. Bilateral ABIs are noted above. ANIL LEMUS D.O. DR: KRISTIE/kaur JOB# [id number]
== END | disposition home or self-care (01) ==
LOC: RAD 13:22 → EEVIPCON 14:00
PROVIDERS: ATTEND Internal Medicine Interventional Cardiology
DX: I70.213 Atherosclerosis of native arteries of extremities with intermittent claudication, bilateral legs (principal)
CPT/HCPCS: 93922; 93925

== ENCOUNTER → 2020-09-20 | Outpatient (CLI) | payer MEDICARE, MEDICAID ==
--- NOTE | 2020-09-21 22:24 | PRP ---
DATE OF PROCEDURE: 09/20/2020 VENOUS MAPPING ULTRASOUND INDICATION: Chronic venous insufficiency. RIGHT LOWER EXTREMITY: The right GSV junction measures 5 mm in its maximum diameter. Significant reflux is noted in the right GSV with maximum reflux of 2.5 seconds. The right SSV, GSV measures 3 mm in its maximum diameter with no evidence of significant reflux. The right SSV measures 3 mm in its maximum diameter with reflux of 0.5 seconds. The true GSV from the proximal to distal segment is not visualized. There is no evidence of deep venous thrombosis in the right lower extremity. LEFT LOWER EXTREMITY: The left GSV junction measures 11 mm in its maximum diameter with reflux of 3.6 seconds. The left true GSV from the proximal to distal segment is not visualized. The left SSV measures 4 mm in its maximum diameter with maximum reflux of 1.6 seconds. The left SSV, GSV measures 4 mm in its maximum diameter with maximum reflux of 3.1 seconds. There is no evidence of deep venous thrombosis in the left lower extremity. IMPRESSION: 1. The left small saphenous vein, greater saphenous vein is normal sized but displays pathological reflux. 2. The left small saphenous vein is normal sized but displays pathological reflux. 3. The right small saphenous vein is normal sized but displays pathological reflux. 4. There is no evidence of deep venous thrombosis in the bilateral lower extremities. 5. The true greater saphenous vein bilaterally is not visualized. RECOMMENDATIONS: Conservative measures including the use of compression stockings, leg elevation and exercise are recommended if clinically indicated. ANIL LEMUS D.O. DR: KRISTIE/kaur JOB# [id number]
== END | disposition home or self-care (01) ==
LOC: RAD 12:51
PROVIDERS: ATTEND Internal Medicine Interventional Cardiology
DX: I87.2 Venous insufficiency (chronic) (peripheral) (principal)
CPT/HCPCS: 93970

== ENCOUNTER → 2020-10-11 | Outpatient (CLI) | payer MEDICARE, MEDICAID ==
--- NOTE | 2020-10-11 11:10 | DIREP ---
PROCEDURE:XRAY SPINE LUMBAR 2-3 VWS COMPARISON:CR, XRAY ABDOMEN 2VW, 10/12/2015, 07:[address], [address]-ABDOMEN /PELVIS W/O CONTRAST, 01/03/2012, 09:39 AM. INDICATIONS:M54.5 LOW BACK PAIN TECHNIQUE:AP, lateral, and coned down lateral views of the lumbar spine are provided. FINDINGS: ALIGNMENT:Maintenance of normal lordosis. VERTEBRAE:No fracture identified. Mild degenerative change, including osteophytosis arthrosis. DISK SPACES:Maintenance of disc space height. SACROILIAC JOINTS:Within normal limits. OTHER:Normal. CONCLUSION: 1. No fracture identified. 2. Mild degenerative change. Dictated by: Jose Angel Romano MD on 10/11/2020 at 11:07 AM
== END | disposition home or self-care (01) ==
LOC: RAD 09:52
PROVIDERS: ATTEND Nurse Practitioner Family
DX: M47.816 Spondylosis without myelopathy or radiculopathy, lumbar region (principal); M54.5 Low back pain
CPT/HCPCS: 72100

== ENCOUNTER 2020-10-29 07:03 | Day surgery (SDC) | payer MEDICARE, MEDICAID ==
[2020-10-27 12:14] VITALS: BP 137/94
--- NOTE | 2020-10-27 12:47 | PCM.EKG ---
[facility] Test Date: 2020-10-27 Test Time: 13:25:05 Pat Name: CHANDLER MENDEZ Department: [id number] Room: Gender: F Manager Secondary: TYE : 1960 Requested By: PATRICIO SPEAR Order Number: [id number] Reading MD: Juan Diego Steinberg Measurements Intervals [place] Rate: 58 P: 71 TX: 148 QRS: 44 QRSD: 74 T: 63 QT: 466 QTc: 457 Interpretive Statements Sinus bradycardia Nonspecific ST abnormality Compared to ECG 07/20/2020 04:38:27 ST (T wave) deviation now present Sinus rhythm no longer present Electronically Signed On 10-28-2020 8:46:52 [employer] SERVICE AGENT by Juan Diego Steinberg Please click the below link to view image of tracing.
[2020-10-27 12:49] LABS: BASOPHIL # 0.1 10^3/uL (0.0-0.1); BASOPHIL % 1.5 % (0.0-0.2); EOSINOPHIL # 0.2 10^3/uL (0.0-0.2); EOSINOPHIL % 5.4 % (0.0-5.0); LYMPHOCYTES # 1.77 10^3/uL1 (1.0-4.8); LYMPHOCYTES % 43.6 % (24.0-44.0); MEAN CORP HGB 30.4 pg (26-34); MONOCYTES # 0.3 10^3/uL (0.3-0.8); MONOCYTES % 8.4 % (5.0-12.0); NEUTROPHIL # 1.7 10^3/uL (1.8-7.7); NEUTROPHILS % 40.6 % (41.0-85.0); PLATELET COUNT 188 10^3/uL (150-400); RED CELL DISTRIBUTION WIDTH 12.8 % (11.5-14.5)
[2020-10-27 13:07] LABS: CALCIUM 9.3 mg/dL (8.4-10.5); CARBON DIOXIDE 28.7 mmol/L (20.0-32)
[~2020-10-29] VITALS: Ht 157.5 cm; Wt 72.6 kg
[~2020-10-29 07:03] MED LIST changes: +LACTATED RINGERS 1,000 ML IV SCH; +LACTATED RINGERS 1,000 ML ONE; +PRED20TA PO
[2020-10-29 07:06] VITALS: BP 117/83
[2020-10-29] MEDS ORDERED: WATER ONE (07:26)
[2020-10-29 08:23] VITALS: BP 89/65
[2020-10-29 08:30] VITALS: BP 93/59
[2020-10-29] MEDS ORDERED: PANT40TA6 PO (08:41)
[2020-10-29 08:45] VITALS: BP 104/72
--- NOTE | 2020-10-29 12:43 | PRM.OPH ---
Endoscopy Report Date: Oct 29, 2020 Study Performed: Upper Endoscopy (Gastroscopy) Procedure Instrument: Endoscope Procedure - Preop diagnosis Reflux Postoperative diagnose Reflux Possible food bolus versus bezoar Possible small hiatal hernia Procedure Endoscopic evaluation of esophagus and limited stomach Surgeon Dr. Redman Anesthesia Monitored anesthesia EBL None Findings Large food bolus/bezoar extending basically from GE junction down into pylorus. Complications None Procedure Patient was initially seen and identified in the preoperative area after confirming her identity HBE consents make sure that all of her questions were answered the patient was transferred from the preop area to the endoscopy suite. Patient was placed into a left lateral decubitus position. Patient had appropriate anesthesia monitoring. A bite block was placed and the patient was given monitored anesthesia with propofol. Once the patient was asleep the gastroscope was inserted into the oral cavity advanced under direct visualization into the pharynx and under direct visualization into the esophagus. The esophagus was insufflated as we advanced towards the GE junction. We were able to get into the stomach without much difficulty. Although once in the stomach we encountered either a large food bolus/bezoar. We attempted to insufflate the stomach although the stomach was not significantly dilating that much. We were able to safely under direct visualization work her way towards the pylorus but were unable to directly visualize it due to this large food mass. Continued attempts to continued insufflation or trying to remove this mass were unsuccessful and I therefore aborted the attempt to get into the duodenum. I did go ahead and feel it was safe to retroflex the scope and looked back up towards the GE junction it appeared to as if the Hill valve was most likely a grade 3 or grade 4 although difficult to directly say due to the inability to completely insufflate the stomach. It does appear as if the patient does have a hiatal hernia which is very small. Scope was taken out of retroflexion view brought back up and at the area of the GE junction we were at 32 cm from the incisors. The stomach was deinsufflated and the rest of the esophagus was reexamined on the way out. There was no sniffing and erosions that were seen in the esophagus. The only small area that I saw pictures were taken but did not feel this was appropriate for biopsy. Once back to the patient's pharynx the scope was removed from the mouth. The patient tolerated the procedure well. PHIL REDMAN MD Oct 29, 2020 12:43
== END 2020-10-29 09:05 | disposition home or self-care (01) ==
LOC: SDC 07:03
PROVIDERS: ATTEND Surgery
DX: K21.9 Gastro-esophageal reflux disease without esophagitis (principal); T18.2XXA Foreign body in stomach, initial encounter; K44.9 Diaphragmatic hernia without obstruction or gangrene; J44.9 Chronic obstructive pulmonary disease, unspecified; I10 Essential (primary) hypertension; F41.9 Anxiety disorder, unspecified; M81.0 Age-related osteoporosis without current pathological fracture; I25.10 Atherosclerotic heart disease of native coronary artery without angina pectoris; R56.9 Unspecified convulsions; I87.2 Venous insufficiency (chronic) (peripheral); E78.2 Mixed hyperlipidemia; F32.9 Major depressive disorder, single episode, unspecified; M19.90 Unspecified osteoarthritis, unspecified site; M06.9 Rheumatoid arthritis, unspecified; E89.0 Postprocedural hypothyroidism; Z98.890 Other specified postprocedural states; Z79.899 Other long term (current) drug therapy; Z79.01 Long term (current) use of anticoagulants; Z90.710 Acquired absence of both cervix and uterus; Z87.891 Personal history of nicotine dependence; Z86.73 Personal history of transient ischemic attack (TIA), and cerebral infarction without residual deficits; Z95.5 Presence of coronary angioplasty implant and graft; Z85.830 Personal history of malignant neoplasm of bone; Z80.51 Family history of malignant neoplasm of kidney; Z90.89 Acquired absence of other organs; Z83.3 Family history of diabetes mellitus; Z82.49 Family history of ischemic heart disease and other diseases of the circulatory system; Z80.3 Family history of malignant neoplasm of breast; Z80.0 Family history of malignant neoplasm of digestive organs; X58.XXXA Exposure to other specified factors, initial encounter
CPT/HCPCS: 36415; 43235; 80053; 85025; 85610; 85730; 93005; J7120

== ENCOUNTER → 2020-12-09 | Outpatient (CLI) | payer MEDICARE, MEDICAID ==
[~2020-12-09] MED LIST changes: -LACTATED RINGERS 1,000 ML IV SCH; -LACTATED RINGERS 1,000 ML ONE; -LISI-410 PO; +LISI20TA21 PO; +PANT40TA6 PO
--- NOTE | 2020-12-09 12:33 | DIREP ---
PROCEDURE:CT LOWER EXTREMITY-RT W/O COMPARISON:None. INDICATIONS:VENOUS INSUFFIENCY TECHNIQUE:Axial sections through the right lower extremity (pelvis to toes) were performed with sagittal and coronal reconstructions from source images. No contrast was administered. FINDINGS: BONES:No acute fracture. No aggressive osseous lesion. JOINTS:Mild degenerative change of the knee and hip. SOFT TISSUES:Limited evaluation of the soft tissue and vascular structures due the lack of intravenous contrast. Visualized pelvic solid organs are unremarkable. Postsurgical change consistent hysterectomy. Subcutaneous tissue, musculature, and visualized vascular structures throughout the right lower extremity are unremarkable in appearance. No suspicious fat stranding seen. OTHER:Negative. CONCLUSION: Unremarkable radiographic appearance of the right lower extremity. Dictated by: Danie Grewal MD on 12/09/2020 at 12:27 PM
== END | disposition home or self-care (01) ==
LOC: RAD 09:33
PROVIDERS: ATTEND Nurse Practitioner Family
DX: I87.2 Venous insufficiency (chronic) (peripheral) (principal); M17.10 Unilateral primary osteoarthritis, unspecified knee; M16.10 Unilateral primary osteoarthritis, unspecified hip
CPT/HCPCS: 73700

== ENCOUNTER 2020-12-20 07:45 | Day surgery (SDC) | payer MEDICARE, MEDICAID ==
[2020-12-15 10:01] LABS: BASOPHIL % 0.9 % (0.0-0.2); EOSINOPHIL # 0.2 10^3/uL (0.0-0.2); EOSINOPHIL % 5.2 % (0.0-5.0); LYMPHOCYTES # 1.63 10^3/uL1 (1.0-4.8); LYMPHOCYTES % 49.8 % (24.0-44.0); MONOCYTES # 0.3 10^3/uL (0.3-0.8); MONOCYTES % 10.4 % (5.0-12.0); NEUTROPHIL # 1.1 10^3/uL (1.8-7.7); NEUTROPHILS % 33.7 % (41.0-85.0); RED CELL DISTRIBUTION WIDTH 12.8 % (11.5-14.5)
[2020-12-15 10:17] LABS: CALCIUM 8.5 mg/dL (8.4-10.5); CARBON DIOXIDE 29.1 mmol/L (20.0-32)
[~2020-12-20] VITALS: Ht 157.5 cm; Wt 72.6 kg
[~2020-12-20 07:45] MED LIST changes: +LACTATED RINGERS 1,000 ML IV SCH; +LACTATED RINGERS 1,000 ML ONE; +LEVO200T5 PO; +LEVO25TA4 PO; +WATER ONE
[2020-12-20 07:53] VITALS: BP 115/67
[2020-12-20] MEDS ORDERED: KETAMINE HCL-Non-Preferred ONE (08:51)
[2020-12-20] MEDS ORDERED: VERSED ONE (08:51)
[2020-12-20 09:22] VITALS: BP 104/66
[2020-12-20] MEDS ORDERED: ZOFRAN ONE (09:29)
[2020-12-20] MEDS ORDERED: ZOFRAN IV ONE (09:50)
[2020-12-20 09:55] VITALS: BP 99/66
[2020-12-20 10:10] VITALS: BP 108/71
--- NOTE | 2020-12-20 10:24 | PRM.OPH ---
Immediate Post Op Report Immediate Post Op Report Imediate Post Op Report Preop diagnosis Bezoar in stomach Postoperative diagnosis No evidence of bezoar Chronic gastritis Procedure EGD with cold biopsy of stomach and esophagus Surgeon Dr. Redman Anesthesia MAC EBL Minimal Specimens Gastric antrum Gastric fundus Distal esophagus Complications None PHIL REDMAN MD Dec 20, 2020 10:24
--- NOTE | 2020-12-20 10:29 | PRM.OPH ---
OPERATIVE REPORT OPERATIVE REPORT The patient was initially seen and identified in the preoperative area. After confirming her identity, H&P, consents, patient was transferred from the preop area to the endoscopy suite. Patient was hooked up to appropriate monitoring placed into a left lateral decubitus position. A bite block was placed. And the patient was given monitored anesthesia. Once the patient was appropriately asleep scope was inserted into the oral cavity advanced into the pharynx and once the esophageal orifice was identified scope was advanced under direct visualization down the esophagus into the stomach. There was no evidence of the bezoar initially noted on entering the stomach. The the stomach was partially insufflated and multiple attempts to get into the duodenum were attempted. Eventually we were able to get into the first and most likely second portions of the duodenum although it did not want to dilate normally. It appeared to be normal the duodenum was deinsufflated and the scope was withdrawn back into the antrum. The stomach was insufflated as fully as possible although it does not seem to fully insufflate appropriately. There was a weird appearance to the stomach and biopsies of the antrum and fundus were taken with cold biopsy forceps. Scope was placed into retroflexion view showing the same pattern as what was seen in the antrum therefore biopsies of fundus was also taken. The Hill valve appeared to be grade 1/2. Continued insufflation did not seem to want to fully insufflate the stomach the scope was then taken out of retroflexion view brought up to what appears to be the GE junction at approximately 35 cm. Scope was then readvanced back into the stomach the biopsy locations were checked there is no evidence of active or ongoing bleeding. This scope was advanced back out into the esophagus this is esophagus distally had more of a cobblestoning like picture so multiple biopsies with cold biopsy forceps were taken. Scope was advanced back into the stomach we reconfirmed there is no signs of active or ongoing bleeding deinsufflated the stomach came back out into the esophagus confirm there was no signs of active or ongoing bleeding the little bit of stomach acid that was present was sucked out and then the rest the esophagus was examined without any additional abnormalities noted. Once scope was back into the pharynx and oral cavity the scope was removed from the patient thus ending the procedure. The patient has tolerated the procedure. Patient will be handed back over to anesthesia to be awoken from monitored anesthesia and transferred back to the PACU for further recovery. PHIL LEWIS MD Dec 20, 2020 10:29
== END 2020-12-20 10:35 | disposition home or self-care (01) ==
LOC: SDC 07:45
PROVIDERS: ATTEND Surgery
DX: K29.50 Unspecified chronic gastritis without bleeding (principal); K21.00 Gastro-esophageal reflux disease with esophagitis, without bleeding; I10 Essential (primary) hypertension; E78.5 Hyperlipidemia, unspecified; J44.9 Chronic obstructive pulmonary disease, unspecified; F32.9 Major depressive disorder, single episode, unspecified; F41.9 Anxiety disorder, unspecified; M06.9 Rheumatoid arthritis, unspecified; E11.9 Type 2 diabetes mellitus without complications; M19.90 Unspecified osteoarthritis, unspecified site; Z86.73 Personal history of transient ischemic attack (TIA), and cerebral infarction without residual deficits; Z90.710 Acquired absence of both cervix and uterus; Z98.890 Other specified postprocedural states; E89.0 Postprocedural hypothyroidism; Z83.3 Family history of diabetes mellitus; Z82.49 Family history of ischemic heart disease and other diseases of the circulatory system; Z80.51 Family history of malignant neoplasm of kidney; Z80.0 Family history of malignant neoplasm of digestive organs; Z80.8 Family history of malignant neoplasm of other organs or systems
CPT/HCPCS: 36415; 43239; 80053; 85025; 85610; 85730; 88305 ×2; 88342; J2250; J2405; J7120; J3490

== ENCOUNTER → 2021-01-06 | Outpatient (CLI) | payer MEDICARE, MEDICAID ==
[~2021-01-06] MED LIST changes: -LACTATED RINGERS 1,000 ML IV SCH; -LACTATED RINGERS 1,000 ML ONE; -WATER ONE
== END | disposition home or self-care (01) ==
LOC: RAD 10:25
PROVIDERS: ATTEND Internal Medicine Interventional Cardiology
DX: I87.2 Venous insufficiency (chronic) (peripheral) (principal)
CPT/HCPCS: 93971

== ENCOUNTER → 2021-01-13 | Outpatient (CLI) | payer MEDICARE, MEDICAID ==
--- NOTE | 2021-01-13 20:27 | PRP ---
DATE OF PROCEDURE: 01/13/2021 POST VENOUS ABLATION DOPPLER ULTRASOUND INDICATION: Status post radiofrequency ablation of the left small saphenous vein. FINDINGS: There is no evidence of deep venous thrombosis in the left lower extremity. The left small saphenous vein is noncompressible. Hyperechoic material is visualized in the left small saphenous vein. There is no evidence of venous flow in the left small saphenous vein. IMPRESSION: 1. Successful radiofrequency ablation of the left small saphenous vein. 2. There is no evidence of deep venous thrombosis in the left lower extremity. ANIL LEMUS D.O. DR: KRISTIE/kaur JOB# [id number]
== END | disposition home or self-care (01) ==
LOC: RAD 09:56
PROVIDERS: ATTEND Internal Medicine Interventional Cardiology
DX: I87.2 Venous insufficiency (chronic) (peripheral) (principal)
CPT/HCPCS: 93971

== ENCOUNTER → 2021-01-20 | Outpatient (CLI) | payer MEDICARE, MEDICAID ==
--- NOTE | 2021-01-20 21:25 | PRP ---
DATE OF PROCEDURE: 01/20/2021 POST VENOUS ABLATION DOPPLER ULTRASOUND INDICATION: Status post radiofrequency ablation of the right small saphenous vein. FINDINGS: There is no evidence of deep venous thrombosis in the right lower extremity. The right small saphenous vein is noncompressible. Hyperechoic material is visualized in the right small saphenous vein. There is no evidence of venous flow in the right SSV. IMPRESSION: 1. Successful radiofrequency ablation of the right small saphenous vein. 2. There is no evidence of deep venous thrombosis in the right lower extremity. ANIL LEMUS D.O. DR: KRISTIE/kaur JOB# [id number]
== END | disposition home or self-care (01) ==
LOC: RAD 09:54
PROVIDERS: ATTEND Internal Medicine Interventional Cardiology
DX: I87.2 Venous insufficiency (chronic) (peripheral) (principal)
CPT/HCPCS: 93971

== ENCOUNTER 2021-02-05 12:04 | Emergency (ER) | payer MEDICARE, MEDICAID ==
[~2021-02-05] VITALS: Ht 170.2 cm; Wt 72.6 kg
[2021-02-05] MEDS ORDERED: NORCO 10MG PO STA (12:12)
[2021-02-05] MEDS ORDERED: TORADOL IM STA (12:12)
[2021-02-05 12:15] VITALS: BP 155/90
[2021-02-05] MEDS ORDERED: PREDNISONE PO STA (12:19)
[2021-02-05 12:21] VITALS: BP 155/90
[2021-02-05] MEDS ORDERED: TORADOL ONE (12:46)
[2021-02-05] MEDS ORDERED: NORCO 10MG PO ONE (12:47)
[2021-02-05] MEDS ORDERED: PREDNISONE ONE (12:47)
--- NOTE | 2021-02-05 12:51 | ER.PDOC ---
General Chief Complaint: Extremities Stated Complaint: L KNEE PAIN Time seen by MD: 12:44 Source: patient Exam Limitations: no limitations History of Present Illness Onset: yesterday Where: home Context: twist Severity: moderate Allergies: Coded Allergies: No Known Allergies (Unverified , 12/15/20) Home Meds Active Scripts Pantoprazole Sodium (PANTOPRAZOLE SODIUM) 40 Mg Tablet.dr, 1 TAB PO BID, #30 TAB 3 Refills Prov:PHIL LEWIS MD 10/29/20 Reported Medications Levothyroxine Sodium (LEVOTHYROXINE SODIUM) 200 Mcg Tablet, 1 TAB PO DAILY, #30 TAB 5 Refills 12/15/20 Levothyroxine Sodium (LEVOTHYROXINE SODIUM) 25 Mcg Tablet, 1 TAB PO DAILY, #30 TAB 5 Refills 12/15/20 Prednisone (PREDNISONE) 20 Mg Tablet, 1 TAB PO DAILY, #5 TAB 10/27/20 Sulfasalazine (SULFAZINE EC) 500 Mg Tablet.dr, 2 TAB PO BID for 30 Days, #120 TAB 0 Refills 07/20/20 Hydroxychloroquine Sulfate (HYDROXYCHLOROQUINE SULFATE) 200 Mg Tablet, 1 TAB PO BID, #180 TAB 1 Refill 07/20/20 Hydrochlorothiazide (HYDROCHLOROTHIAZIDE) 12.5 Mg Tablet, 1 TAB PO DAILY, #30 TAB 5 Refills 07/20/20 Clopidogrel Bisulfate (PLAVIX) 75 Mg Tablet, 1 TAB PO QD for 30 Days, #30 TAB 0 Refills 07/20/20 Albuterol Sulfate (ALBUTEROL SULFATE) 2.5 Mg/3 Ml Vial.neb, 2.5 MG IH RTBID, EA 07/20/20 Loratadine (LORATADINE) 10 Mg Tablet, 1 TAB PO DAILY, #30 TAB 5 Refills 06/13/18 Lisinopril (LISINOPRIL) 20 Mg Tablet, 1 TAB PO DAILY, #30 TAB 5 Refills 06/13/18 Cholecalciferol (Vitamin D3) (VITAMIN D3) 50,000 Unit Capsule, 15443 UNIT PO Q7D, CAPSULE 06/12/18 Calcium Carb & Cit/Vitamin D3 (CALCIUM + D3 ER TABLET) 1 Each Tablet.er, 1 EACH PO DAILY24 06/12/18 Sarilumab (Kevzara) 200 Mg/1.14 Ml Syringe, 200 MG SQ EVERY 14 DAYS 06/12/18 Fluticasone Propionate (FLUTICASONE PROPIONATE) 16 Gm [place].susp, 1 SPR HHN PRN PRN for resp, #16 08/03/16 Lovastatin (LOVASTATIN) 10 Mg Tablet, 1 TAB PO DAILY, #30 08/03/16 Pregabalin (LYRICA) 100 Mg Capsule, 2 CAP PO BID, #60 08/03/16 Hydrocodone Bit/Acetaminophen (NORCO 10-325) 1 Each Tablet, 1 TAB PO QID, #120 TAB 10/13/15 Alprazolam (ALPRAZOLAM) 1 Mg Tablet, 1 MG PO TID, TABLET 07/02/15 Cyclobenzaprine Hcl (FLEXERIL) 10 Mg Tablet, 10 MG PO TID PRN for PAIN, TABLET 07/02/15 Past Medical History Medical History: cardiac problems, high cholesterol, hypertension Surgical History: hysterectomy, knee Social History Alcohol Use: none Drug Use: none Reviewed Nursing Reviewed: Vital Signs, Abn. Noted Review of Systems All Other Systems: Reviewed and Negative Physical Exam General Appearance: Alert, No Apparent Distress Foot: nml inspection, non-tender, nml color/temp, skin intact Ankle: nml inspection, non-tender, nml ROM, no joint swelling, skin intact Knee: see diagram, tenderness, swelling, joint effusion, limited ROM by pain Thigh/Hip: nml inspection Gait: antalgic gait Neuro/Vasc/Tendon: sensation nml, motor nml, no vascular compromise, tendon function nml Skin: warm/dry Head/ENT: nml inspection, pharynx nml Neck/Back: nml inspection, non-tender Abdomen: non-tender, pelvis stable Results/Orders Results/Orders Orders - DONNIE BARBER MD Xr Knee Lt 3v (02/05/21 12:12) Ketorolac Tromethamine (Toradol) (02/05/21 12:12) Hydrocodone/Acetaminophen ([place] 10mg) (02/05/21 12:12) Prednisone (Prednisone) (02/05/21 12:19) Ketorolac Tromethamine (Toradol) (02/05/21 12:46) Vital Signs Date Time Temp Pulse Resp B/P (MAP) Pulse Ox O2 Delivery O2 Flow Rate FiO2 02/05/21 12:21 97.8 70 20 155/90 (111) 97 Room Air 02/05/21 12:15 97.8 70 20 97 02/05/21 12:15 97.8 70 20 Consult/PCP Time Consult/PCP Called: 12:55 Consult/PCP: dr HANSEN , F/U IN AM ER DEPART Departure Time of Disposition: 13:00 Disposition: 01 HOME, SELF-CARE Impression: Primary Impression: Knee effusion, left Condition: Stable Referrals: DIANN ARRIETA VIDEO SPECIALIST (PCP) PRIMARY CARE PROVIDER Duration or Time Spent with Pa: Efremm DONNIE BARBER MD Feb 05, 2021 12:51
--- NOTE | 2021-02-05 13:11 | DIREP ---
PROCEDURE:XRAY KNEE 3 VIEWS-LT COMPARISON:None. INDICATIONS:knee pain FINDINGS: Three views of the left knee. Left knee arthroplasty. No fracture or dislocation identified. No radiopaque foreign body. CONCLUSION: 1. Left knee arthroplasty, no fracture identified. Dictated by: Brenda Aj MD on 02/05/2021 at 01:09 PM
== END 2021-02-05 13:05 | disposition home or self-care (01) ==
LOC: ER 12:04
DX: M25.462 Effusion, left knee (principal); E78.00 Pure hypercholesterolemia, unspecified; I10 Essential (primary) hypertension; Z79.52 Long term (current) use of systemic steroids; Z79.899 Other long term (current) drug therapy; Z90.710 Acquired absence of both cervix and uterus
CPT/HCPCS: 73562; 96372; 99283; J1885; J7512

== ENCOUNTER → 2021-03-29 | Outpatient (CLI) | payer MEDICARE, OTHER ==
[~2021-03-29] MED LIST changes: -OMEP40CA41 PO; +OMEP40CA8 PO
--- NOTE | 2021-03-29 19:59 | DIREP ---
PROCEDURE:MRI L SPINE W O CONTRAST TECHNIQUE:Multiplanar MR images of the lumbar spine were obtained without contrast. COMPARISON:None. INDICATIONS:M51.36 DDD FINDINGS: ALIGNMENT:Straightening of the normal lumbar curvature. VERTEBRAE:Normal. PARASPINAL AREA:Normal. OTHER:No additional findings. LUMBAR DISC LEVELS T12-L1:Normal. L1-2:Normal. L2-3:Small disc bulge with facet hypertrophy and thickening of ligamentum flavum. No clinically significant neural foraminal or spinal canal narrowing. L3-4:Small disc bulge with facet hypertrophy and thickening of ligamentum flavum. Mild right neural foraminal narrowing. L4-5:Small disc bulge with facet hypertrophy and thickened ligamentum flavum. Mild left neural from narrowing. L5-S1:Small disc bulge with facet hypertrophy and thickening of ligamentum flavum. [id number] bilateral neural from narrowing. CONCLUSION: Straightening of the normal lumbar curvature which can be seen with muscle spasm. [id number] neural foraminal narrowing at L5-S1. Other degenerative changes as above. Dictated by: Alessandro Cline MD on 03/29/2021 at 07:54 PM
== END | disposition home or self-care (01) ==
LOC: RAD 15:19
PROVIDERS: ATTEND Nurse Practitioner Family
DX: M47.817 Spondylosis without myelopathy or radiculopathy, lumbosacral region (principal); M51.27 Other intervertebral disc displacement, lumbosacral region; M48.07 Spinal stenosis, lumbosacral region
CPT/HCPCS: 72148